=== PATIENT | female | born 1955 | race Hispanic/Latino ===

== ENCOUNTER 2018-05-26 16:11 | Emergency (ER) | payer MEDICARE, MEDICAID ==
[~2018-05-26] VITALS: Ht 175.3 cm; Wt 88.6 kg
[~2018-05-26 16:11] MED LIST: ACYCLOVIR200 MG PO; AMLODIPINE BESY10 MG PO; AMLODIPINE10 MG PO; BACTRIM DS1 TAB PO; CEPHALEXIN500 MG OR; CETIRIZINE10 MG PO; FIORICE1 PO; FLEXERIL PO; FOLIC ACID1 MG PO; HUMULIN 70/30 SC; IBUPROFEN600 MG PO; INSULIN 70/30 SC; LORTAB 10 PO; LORTAB5 PO; METHOTREXATE2.5 MG SC; METHOTREXATE25 MG/ML SC; ORENCIA125 MG/ML SC; PRILOSEC20 MG OR; RYZOLT100 MG OR; TRAMADOL HCL50 MG PO; ULTRAM50 M1 PO; ULTRAM50 MG OR; [UNRECOGNIZED DRUG - REMARK]
[2018-05-26] MEDS ORDERED: ATORVASTATIN CA80 MG PO (17:13)
[2018-05-26] MEDS ORDERED: LASIX 40 MG40 MG/TAB PO (17:13)
[2018-05-26] MEDS ORDERED: HUMALOG KW75 MG/25 K SC ×2 (17:15→17:18)
[2018-05-26] MEDS ORDERED: HUMIRA10 MG/0.2 SC (17:19)
[2018-05-26] MEDS ORDERED: BONIVA150 MG PO (17:20)
[2018-05-26] MEDS ORDERED: ISOSORB MONO30 MG PO (17:21)
[2018-05-26] MEDS ORDERED: LISINOPRIL5 MG PO (17:22)
[2018-05-26] MEDS ORDERED: LOPRESSOR50 M2 PO (17:23)
[2018-05-26] MEDS ORDERED: SINGULAIR10 MG PO (17:24)
[2018-05-26] MEDS ORDERED: SUCRALFATE1 GM PO (17:25)
[2018-05-26] MEDS ORDERED: PROAIR HFA108 MCG/AC IN (17:25)
[2018-05-26] MEDS ORDERED: TRAMADOL HCL50 MG PO (17:26)
[2018-05-26] MEDS ORDERED: MELOXICAM7.5 MG PO (17:26)
[2018-05-26 17:30] VITALS: BP 168/92
== END 2018-05-26 17:37 | disposition home or self-care (01) ==
LOC: ED 16:11
DX: M54.5 Low back pain (principal); I10 Essential (primary) hypertension; E11.9 Type 2 diabetes mellitus without complications; W07.XXXA Fall from chair, initial encounter; Y92.009 Unspecified place in unspecified non-institutional (private) residence as the place of occurrence of the external cause

== ENCOUNTER → 2018-07-10 | Outpatient (REF) | payer MEDICARE, MEDICAID ==
[~2018-07-10] MED LIST changes: +ATORVASTATIN CA80 MG PO; +BONIVA150 MG PO; +HUMALOG KW75 MG/25 K SC; +HUMIRA10 MG/0.2 SC; +ISOSORB MONO30 MG PO; +LASIX 40 MG40 MG/TAB PO; +LISINOPRIL5 MG PO; +LOPRESSOR50 M2 PO; +MELOXICAM7.5 MG PO; +PROAIR HFA108 MCG/AC IN; +SINGULAIR10 MG PO; +SUCRALFATE1 GM PO
== END | disposition home or self-care (01) ==
LOC: NUCMED 06-12 09:00
PROVIDERS: ATTEND Internal Medicine Rheumatology
DX: R93.89 Abnormal findings on diagnostic imaging of other specified body structures (principal)
CPT/HCPCS: A9503

== ENCOUNTER 2019-02-06 10:36 | Emergency (ER) | payer MEDICARE, MEDICAID ==
[~2019-02-06] VITALS: Ht 175.3 cm; Wt 90.0 kg
[~2019-02-06 10:36] MED LIST changes: +LOPRESSOR25 MG PO; -LOPRESSOR50 M2 PO
[2019-02-06 11:20] LABS: HEMATOCRIT 38.4 % (37.0-47.0); HEMOGLOBIN 11.7 g/dl (12.0-16.0); IMMATURE GRANULOCYTES 0.9 % (0.0-5.0); MEAN CELL VOLUME 92.5 fL CALC (80.0-100.0); MEAN CORPUSCULAR HGB 28.2 pG CALC (26.0-32.0); MEAN CORPUSCULAR HGB CONC 30.5 g/L CALC (32.0-36.0); NEUT# 6.66 thou/uL (2.00-7.15); RED BLOOD COUNT 4.15 mill/uL (4.20-5.60); RED CELL DISTRI WIDTH 14.6 % (11.5-15.5)
[2019-02-06 11:42] LABS: ANION GAP 12 (6-22 (CALC)); BUN 17 mg/dL (8-23); BUN/CREATININE RATIO 25 (12-20 (CALC)); CARBON DIOXIDE 24 mmol/l (22-30); CHLORIDE 107 mmol/l (95-108); CPK 43 u/l (30-165); CREATININE 0.7 mg/dL (0.5-1.0); GFR > 60 ML/MIN (>=60 (CALC)); GFR FOR AFR.AMER. > 60 ML/MIN (>=60 (CALC)); SODIUM 139 mmol/l (137-146)
[2019-02-06] MEDS ORDERED: RENA-VIT1 PO (12:28)
[2019-02-06] MEDS ORDERED: TOPAMAX25 MG PO (12:29)
[2019-02-06] MEDS ORDERED: SERTRALINE HCL100 MG PO (12:29)
[2019-02-06] MEDS ORDERED: ZANTAC 150 PO (12:31)
[2019-02-06] MEDS ORDERED: ACIDOPHILUS1 CAP PO (12:32)
[2019-02-06] MEDS ORDERED: AMIODARONE200 MG PO (12:33)
[2019-02-06] MEDS ORDERED: ADVAIR DISK1 IN (12:33)
[2019-02-06] MEDS ORDERED: CIPROFLOXACN500 MG PO (12:35)
[2019-02-06] MEDS ORDERED: ASPIRIN81 MG PO (12:35)
[2019-02-06] MEDS ORDERED: PLAVIX75 MG PO (12:36)
[2019-02-06] MEDS ORDERED: LEVEMIR100 UNIT/M SC (12:37)
[2019-02-06] MEDS ORDERED: NORCO1 TA1 PO (12:38)
[2019-02-06] MEDS ORDERED: PROTONIX40 M2 PO (12:38)
[2019-02-06 12:42] VITALS: BP 179/86
== END 2019-02-06 13:00 | disposition home or self-care (01) ==
LOC: ED 10:36
PROVIDERS: Family Medicine
DX: S70.01XA Contusion of right hip, initial encounter (principal); I10 Essential (primary) hypertension; E11.9 Type 2 diabetes mellitus without complications; W06.XXXA Fall from bed, initial encounter; Y92.003 Bedroom of unspecified non-institutional (private) residence as the place of occurrence of the external cause; Z79.4 Long term (current) use of insulin

== ENCOUNTER 2019-04-01 10:31 | Emergency (ER) | payer MEDICARE, MEDICAID ==
[~2019-04-01] VITALS: Ht 175.3 cm; Wt 81.0 kg
[~2019-04-01 10:31] MED LIST changes: +ACIDOPHILUS1 CAP PO; +ADVAIR DISK1 IN; +AMIODARONE200 MG PO; +ASPIRIN81 MG PO; +CIPROFLOXACN500 MG PO; +LEVEMIR100 UNIT/M SC; +NORCO1 TA1 PO; +PLAVIX75 MG PO; +PROTONIX40 M2 PO; +RENA-VIT1 PO; +SERTRALINE HCL100 MG PO; +TOPAMAX25 MG PO; +ZANTAC 150 PO
[2019-04-01 11:08] LABS: IMMATURE GRANULOCYTES 0.7 % (0.0-5.0); MEAN CELL VOLUME 88.6 fL CALC (80.0-100.0); MEAN CORPUSCULAR HGB 27.8 pG CALC (26.0-32.0); MEAN CORPUSCULAR HGB CONC 31.4 g/L CALC (32.0-36.0); NEUT# 16.93 thou/uL (2.00-7.15); RED BLOOD COUNT 3.95 mill/uL (4.20-5.60)
[2019-04-01 11:28] LABS: URINE BLOOD DIPSTICK SMALL (NEGATIVE); URINE COLOR YELLOW; URINE GLUCOSE - DIPSTICK NEGATIVE (NEGATIVE); URINE KETONE 40 mg/dL (NEGATIVE); URINE LEUK ESTERASE TRACE (NEGATIVE); URINE NITRITE - DIPSTICK NEGATIVE (Negative); URINE PH 5.5 (4.5-8.0); URINE PROTEIN - DIPSTICK 100 mg/dL (NEG-TRACE); URINE SPECIFIC GRAVITY >=1.030; URINE UROBILINOGEN - DIPSTICK 0.2 E.U./dL (0.2)
[2019-04-01 11:29] LABS: URINE BILIRUBIN - DIPSTICK MODERATE (NEGATIVE)
[2019-04-01] MEDS ORDERED: ADVAIR DISK1 INH (11:39)
[2019-04-01] MEDS ORDERED: [UNRECOGNIZED DRUG - OTHER] PO (11:41)
[2019-04-01] MEDS ORDERED: GLIPIZIDE5 MG PO (11:42)
[2019-04-01 11:43] LABS: ALBUMIN 3.8 g/dL (3.2-5.0); ALKALINE PHOSPHATASE 115 u/l (38-126); ANION GAP 17 (6-22 (CALC)); BUN 20 mg/dL (8-23); BUN/CREATININE RATIO 25 (12-20 (CALC)); CARBON DIOXIDE 20 mmol/l (22-30); CHLORIDE 105 mmol/l (95-108); CPK 379 u/l (30-165); CREATININE 0.8 mg/dL (0.5-1.0); ETHYL ALCOHOL 0 mg/dl (0-30); GFR > 60 ML/MIN (>=60 (CALC)); GFR FOR AFR.AMER. > 60 ML/MIN (>=60 (CALC)); LIPASE 24 u/l (23-300); MAGNESIUM 1.8 mg/dL (1.6-2.3); POTASSIUM 3.2 mmol/l (3.5-5.1); SODIUM 139 mmol/l (137-146); TOTAL PROTEIN 7.1 g/dL (6.3-8.2)
[2019-04-01 11:44] LABS: BILIRUBIN, TOTAL 0.7 mg/dL (0.0-1.4); SGOT/AST 69 u/l (9-36)
[2019-04-01 11:44] LABS: URINE BACTERIA MANY hpf; URINE SQUAMOUS EPITHELIAL CELL FEW EPI/hpf (0-FEW)
[2019-04-01] MEDS ORDERED: LOSARTAN POTASS50 MG PO (11:45)
[2019-04-01] MEDS ORDERED: NORCO1 TA2 PO (11:46)
[2019-04-01 11:48] LABS: ACT PARTIAL THROMBO TIME 26.4 SECONDS (20.0-32.5); PROTHROMBIN TIME 10.9 SECONDS (9.0-12.5)
[2019-04-01 16:04] VITALS: BP 126/62
== END 2019-04-01 16:04 | disposition short-term general hospital (02) ==
LOC: ED 10:31
PROC: 0T9B70Z Drainage of Bladder with Drainage Device, Via Natural or Artificial Opening (ICD-10-PCS; principal; 2019-04-01)
PROC: 2W3VXYZ Immobilization of Left Toe using Other Device (ICD-10-PCS; 2019-04-01)
DX: S72.144A Nondisplaced intertrochanteric fracture of right femur, initial encounter for closed fracture (principal); S92.412A Displaced fracture of proximal phalanx of left great toe, initial encounter for closed fracture; S80.11XA Contusion of right lower leg, initial encounter; N39.0 Urinary tract infection, site not specified; I10 Essential (primary) hypertension; E11.9 Type 2 diabetes mellitus without complications; L89.629 Pressure ulcer of left heel, unspecified stage; L89.619 Pressure ulcer of right heel, unspecified stage; B96.20 Unspecified Escherichia coli [E. coli] as the cause of diseases classified elsewhere; W18.30XA Fall on same level, unspecified, initial encounter; Y92.009 Unspecified place in unspecified non-institutional (private) residence as the place of occurrence of the external cause; Z16.12 Extended spectrum beta lactamase (ESBL) resistance; Z95.1 Presence of aortocoronary bypass graft; Z79.84 Long term (current) use of oral hypoglycemic drugs

== ENCOUNTER 2019-05-01 11:47 | Inpatient (IN) | payer MEDICARE, MEDICAID ==
[~2019-05-01] VITALS: Ht 177.8 cm; Wt 86.2 kg
[~2019-05-01 11:47] MED LIST changes: +ADVAIR DISK1 INH; +GLIPIZIDE5 MG PO; +LOSARTAN POTASS50 MG PO; +NORCO1 TA2 PO; +[UNRECOGNIZED DRUG - OTHER] PO
--- NOTE | 2019-05-01 11:55 | NUR ---
PATIENT ARRIVES TO ED VIA EMS, ALERT AND ORIENTED X4. AT BEDSIDE.
--- NOTE | 2019-05-01 12:15 | NUR ---
PATIENT REPORTS BEING DISCHARGED FROM REHAB ON 04/28/19, UNABLE TO STAND AND AMBULATE SINCE RIGHT HIP FRACTURE IN MARCH (2018). HAS BEEN UNABLE TO PROVIDE SELFT CARE SINCE BEING HOME, HOME HEALTH NURSE TO SEE HER TODAY AND CALLED EMS FOR TRANSPORT TO HOSPITAL. PATIENT REPORTS BEING IN WHEELCHAIR MOSTLY. PATIENT CLEAN OF INCONTINENCE, REDNESS NOTED TO BUTTOCKS AREA. PATIENT REPORTS HAVING ULCERS TO BILATERAL ANKLES.
[2019-05-01 12:24] LABS: HEMATOCRIT 31.5 % (37.0-47.0); HEMOGLOBIN 9.8 g/dl (12.0-16.0); IMMATURE GRANULOCYTES 0.9 % (0.0-5.0); MEAN CELL VOLUME 91.8 fL CALC (80.0-100.0); MEAN CORPUSCULAR HGB 28.6 pG CALC (26.0-32.0); MEAN CORPUSCULAR HGB CONC 31.1 g/L CALC (32.0-36.0); NEUT# 7.3 thou/uL (2.00-7.15); RED BLOOD COUNT 3.43 mill/uL (4.20-5.60); RED CELL DISTRI WIDTH 15.1 % (11.5-15.5)
[2019-05-01 12:43] LABS: ALBUMIN 4.1 g/dL (3.2-5.0); ALKALINE PHOSPHATASE 166 u/l (38-126); ANION GAP 15 (6-22 (CALC)); BILIRUBIN, TOTAL 0.6 mg/dL (0.0-1.4); BUN 37 mg/dL (8-23); BUN/CREATININE RATIO 37 (12-20 (CALC)); CARBON DIOXIDE 24 mmol/l (22-30); CHLORIDE 103 mmol/l (95-108); GFR 56 ML/MIN (>=60 (CALC)); GFR FOR AFR.AMER. > 60 ML/MIN (>=60 (CALC)); LIPASE 17 u/l (23-300); POTASSIUM 3.8 mmol/l (3.5-5.1); SGOT/AST 50 u/l (9-36); SODIUM 138 mmol/l (137-146)
--- NOTE | 2019-05-01 12:45 | NUR ---
URINE SAMPLE OBTAINED VIA STRAIGHT CATH, NOTED TO BE CLEAR YELLOW. PATIENT TOLERATED WELL. REQUESTING PAIN MEDICATION FOR BACK PAIN. MADE AWARE.
[2019-05-01] MEDS ORDERED: MILK OF MAG30 ML/UDC PO (13:14)
[2019-05-01] MEDS ORDERED: LOVENOX 3030 MG/0.3 SC (13:16)
[2019-05-01] MEDS ORDERED: FERR SULFATE325 MG PO (13:17)
[2019-05-01] MEDS ORDERED: NORVASC5 M1 PO (13:19)
[2019-05-01] MEDS ORDERED: WIXELA INHUB 251 AER IN (13:21)
[2019-05-01 13:26] LABS: URINE BILIRUBIN - DIPSTICK NEGATIVE (NEGATIVE); URINE BLOOD DIPSTICK NEGATIVE (NEGATIVE); URINE COLOR YELLOW; URINE GLUCOSE - DIPSTICK NEGATIVE (NEGATIVE); URINE KETONE NEGATIVE (NEGATIVE); URINE LEUK ESTERASE NEGATIVE (NEGATIVE); URINE PH 5.5 (4.5-8.0); URINE PROTEIN - DIPSTICK TRACE mg/dL (NEG-TRACE); URINE UROBILINOGEN - DIPSTICK 0.2 E.U./dL (0.2)
[2019-05-01 13:27] LABS: URINE NITRITE - DIPSTICK POSITIVE (Negative); URINE RBC 0-2 RBC/hpf (0-5)
[2019-05-01 13:28] LABS: URINE BACTERIA RARE hpf
--- NOTE | 2019-05-01 13:40 | NUR ---
AT BEDSIDE TO DISCUSS RESULTS AND PLAN OF CARE.
--- NOTE | 2019-05-01 14:15 | NUR ---
NURSE DIANELYS NOT AVAILABLE FOR REPORT. WILL CALL BACK.
--- NOTE | 2019-05-01 15:03 | NUR ---
REPORT GIVEN TO REE IVORY
--- NOTE | 2019-05-01 15:06 | NUR ---
PATIENT TRANSPORTED TI [facility] VIA STRETCHER. BELONGINGS SENT WITH PATIENT. REE IVORY AT BEDSIDE. CARE RELINQUISHED.
[2019-05-01 15:48] VITALS: BP 148/72
--- NOTE | 2019-05-01 17:52 | NUR ---
PT POSITIONED ONTO LEFT SIDE. PT CLEANED OF URINE. SHEETS CHANGED AND GOWN CHANGED.
[2019-05-01 18:56] VITALS: BP 110/59
--- NOTE | 2019-05-01 19:05 | NUR ---
ASSUMED CARE. PT NOTED RESTING IN BED. ALERT AND ORIENTED. NO APPARENT DISTRESS NOTED. PT DENIES ANY PAIN OR DISCOMFORT. IV SITE APPEARS HEALTHY. DISCUSSED POC. PT VERBALIZED UNDERSTANDING. CALL LIGHT WITHIN REACH. WILL CONTINUE TO MONITOR.
--- NOTE | 2019-05-01 21:50 | NUR ---
COMPLETE BED BATH AND LINEN CHANGE PROVIDED. PT REPOSITIONED FOR COMFORT WITH PILLOWS. PURWIK APPLIED. PT STATES SHE HAS BEEN INCONTINENT SINCE SX IN FEBRUARY. REDNESS NOTED TO BUTTOCKS, BARRIER CREAM APPLIED. CALL LIGHT WITHIN REACH. WILL CONTINUE TO MONITOR.
--- NOTE | 2019-05-02 01:02 | NUR ---
PT REPOSITIONED FOR COMFORT. PRESSURE WOUNDS NOTED TO LAURA HEELS. OLD SOILED ODORUS DRESSINGS REMOVED, IMAGES OBTAINED, WOUND CLEANSED WITH NS, CULTURE OBTAINED, AND DRESSED WITH DRY DRESSINGS. HEELS OFFLOADED WITH PILLOWS. CALL LIGHT WITHIN REACH. WILL CONTINUE TO MONITOR.
--- NOTE | 2019-05-02 03:02 | NUR ---
PT RESTING IN BED. REPOSITIONED WILL PILLOWS. PURWIK IN PLACE FUNCTIONING PROPERLY. CALL LIGHT WITHIN REACH. WILL CONTINUE TO MONITOR.
[2019-05-02 04:35] VITALS: BP 131/64
[2019-05-02 05:21] LABS: HEMATOCRIT 29.4 % (37.0-47.0); HEMOGLOBIN 8.9 g/dl (12.0-16.0); MEAN CELL VOLUME 92.5 fL CALC (80.0-100.0); MEAN CORPUSCULAR HGB CONC 30.3 g/L CALC (32.0-36.0); RED BLOOD COUNT 3.18 mill/uL (4.20-5.60); RED CELL DISTRI WIDTH 15.2 % (11.5-15.5)
[2019-05-02 05:40] LABS: ANION GAP 13 (6-22 (CALC)); BUN 33 mg/dL (8-23); BUN/CREATININE RATIO 36 (12-20 (CALC)); CARBON DIOXIDE 22 mmol/l (22-30); CHLORIDE 106 mmol/l (95-108); CREATININE 0.9 mg/dL (0.5-1.0); GFR > 60 ML/MIN (>=60 (CALC)); GFR FOR AFR.AMER. > 60 ML/MIN (>=60 (CALC)); MAGNESIUM 2.1 mg/dL (1.6-2.3); POTASSIUM 3.7 mmol/l (3.5-5.1); SODIUM 138 mmol/l (137-146)
--- NOTE | 2019-05-02 07:15 | NUR ---
PT RESTING IN BED WITH EYES CLOSED. NO DISTRESS NOTED. WILL CONTINUE TO MONITOR. CALL LIGHT IN REACH.
[2019-05-02 08:10] VITALS: BP 141/53
--- NOTE | 2019-05-02 13:05 | NUR ---
LIZ, ARTIFICIAL FLOWERS STARCHER AT BEDSIDE
[2019-05-02 15:00] VITALS: BP 134/62
--- NOTE | 2019-05-02 15:19 | NUR ---
DR AMADOR AND JEYSON MACK AT [facility].
--- NOTE | 2019-05-02 16:02 | NUR ---
PT MEDICATED FOR LOW GRADE TEMP OF 100.1. PT RESTING IN BED. NO C/O AT THIS TIME. WILL CONTINUE TO MONITOR. CALL LIGHT IN REACH.
--- NOTE | 2019-05-02 16:22 | NUR ---
PT TRANSFERED TO AIR MATTRESS BED X4 STAFF ASSIST. PT REPOSITIONED. HEELS ELEVATED ON PILLOWS. PT TOLERATED TRANSFER WELL. CALL LIGHT IN REACH.
--- NOTE | 2019-05-02 19:20 | NUR ---
PT RESTING IN BED ON AIR MATTRESS, NO SIGNS OF DISTRESS NOTED, RESP EVEN AND UNLABORED. INTRODUCED SELF TO PT, VOICES NO NEEDS OR COMPLAINTS AT THIS TIME, CALL LIGHT IN REACH,CONTINUE TO MONITOR.
[2019-05-02 19:25] VITALS: BP 119/66
--- NOTE | 2019-05-02 21:00 | NUR ---
PT RESTING IN BED ON AIRMATTRESS, PT ON CONTACT FOR ESBL, DISCUSSED PLANS FOR ANTIBIOTIC THERAPY, IVF INITATED. PT ALERT AND ORIENTED X3, RESP EVEN AND UNLABORED. DRESSINGS TO HEELS BILAT CDI, ELEVATED ON PILLOWS; HEEL PROTECTORS APPLIED. PT HAS A PURE WICK TO SUCTION, NOTED DARK YELLOW URINE IN CANISTER. DISCUSSED POC, VERBALIZED UNDERSTANDING. ASSESSMENT COMPLETED, CALL LIGHT IN REACH,CONTINUE TO MONITOR.
--- NOTE | 2019-05-02 23:25 | NUR ---
HEAD PORTER BAGGAGE AT BEDSIDE, PT RECEIVING BED BATH
--- NOTE | 2019-05-03 04:07 | NUR ---
PT RESTING IN BED WITH EYES CLOSED, NO SIGNS OF DISTRESS NOTED, RESP EVEN AND UNLABORED. CALL LIGHT IN REACH,CONTINUE TO MONITOR.
[2019-05-03 04:21] VITALS: BP 135/65
[2019-05-03 04:46] LABS: HEMATOCRIT 30.4 % (37.0-47.0); HEMOGLOBIN 9.2 g/dl (12.0-16.0); IMMATURE GRANULOCYTES 0.9 % (0.0-5.0); MEAN CELL VOLUME 92.1 fL CALC (80.0-100.0); MEAN CORPUSCULAR HGB 27.9 pG CALC (26.0-32.0); MEAN CORPUSCULAR HGB CONC 30.3 g/L CALC (32.0-36.0); NEUT# 4.93 thou/uL (2.00-7.15); RED BLOOD COUNT 3.3 mill/uL (4.20-5.60); RED CELL DISTRI WIDTH 15.2 % (11.5-15.5)
[2019-05-03 05:02] LABS: ANION GAP 11 (6-22 (CALC)); BUN 23 mg/dL (8-23); BUN/CREATININE RATIO 31 (12-20 (CALC)); CARBON DIOXIDE 23 mmol/l (22-30); CHLORIDE 109 mmol/l (95-108); CREATININE 0.8 mg/dL (0.5-1.0); GFR > 60 ML/MIN (>=60 (CALC)); GFR FOR AFR.AMER. > 60 ML/MIN (>=60 (CALC)); POTASSIUM 3.5 mmol/l (3.5-5.1); SODIUM 139 mmol/l (137-146)
[2019-05-03 07:33] VITALS: BP 150/75
--- NOTE | 2019-05-03 09:08 | NUR ---
PURE WICK CHANGE. ASSESSMENT DONE. PT IS NOW SITTING IN RECLINER. PT STATED PAIN. MEDICATED PT WITH LORTAB. DRESSING IN LAURA HEELS CDI. PT IS A&O X3. PT DENIES ANY OTHER NEEDS AT THIS TIME. CALL LIGHT IN REACH.
--- NOTE | 2019-05-03 11:35 | NUR ---
PT IS SITTING IN RECLINER . PT STATED PAIN 11/15. MEDICATED PT TYLENOL. SETUP PT FOR LUNCH AND PO FLUIDS. PT DENIES ANY OTHER NEEDS AT THIS TIME. CALL LIGHT IN REACH.
--- NOTE | 2019-05-03 12:45 | NUR ---
DR. MARTINEZ AT BEDSIDE TO ASSESS PT.
--- NOTE | 2019-05-03 14:13 | NUR ---
CHANGE PT LAURA DRESSING IN HEELS AND APPLIED HEEL PROTECTORS. MEDICATED PT WITH ULTRAM FOR PAIN. AIR MATTERESS IN PLACE. PT DENIES ANY OTHER NEEDS AT THIS TIME. CALL LIGHT IN REACH.
[2019-05-03 15:00] VITALS: BP 131/66
--- NOTE | 2019-05-03 16:05 | NUR ---
PT IS RESTING IN BED WITH LEGS ELEVATED IN PILLOWS. PT DENIES NEEDS AT THIS TIME. IVF INFUSING WELL. CALL LIGHT IN REACH.
[2019-05-03 18:40] VITALS: BP 131/72
[2019-05-04 04:00] VITALS: BP 140/74
[2019-05-04 08:00] VITALS: BP 145/75
--- NOTE | 2019-05-04 08:00 | NUR ---
PT SEEN AT REST IN THE BED, AWAKE, ALERT, ORIENTED. LUNGS CLEAR, RA. ABDOMEN SOFT, NONTENDER. BLOOD CULTURES DRAWN THIS MORNING BY LAB. PT WITH GENERALIZED PAIN, MEDICATED. HEEL PROTECTORS IN PLACE.
--- NOTE | 2019-05-04 12:00 | NUR ---
PT ASSISTED TO RECLINER AT BESIDE, ABLE TO BEAR HER WEIGHT AND MOVE SLOWLY. PT TO EAT MEAL WHILE IN CHAIR.
[2019-05-04 15:35] VITALS: BP 141/72
--- NOTE | 2019-05-04 16:33 | NUR ---
AMPAC: 14 POINTS PT DID BETTER ON FUNCTIONAL ACTIVITIES TODAY THAN YESTERDAY. STILL REQUIRED MAX A ON STS FROM LOW RECLINER CHAIR. HAD A LOT OF DIFFICULTY USING B UE TO FACILITATE ON ASSUMING STANDING POSITION. HOWEVER, PT WAS ABLE TO AMBULATE TODAY WITH SHORT STEPS W/ RW AND CGA ON BEDSIDE ~15 FT FROM RECLINER TO THE OTHER SIDE OF THE BED. SHE SAT IN THE COMMODE WITH VCS ON HAND PLACEMENT WHICH SHE DEMONSTRATED BETTER CONTROL ON DESCENT. SHE WAS ALSO INSTRUCTED TO PERFORM LONG ARC QUADS X 10 SH X 10 REPS; HEEL RAISES X 20 REPS X 2 SETS BILATERALLY. PT EXPRESSED HER DESIRE TO DO BETTER. THERAPIST ENCOURAGED AND REASSURED PT.
--- NOTE | 2019-05-04 16:43 | NUR ---
PT ABLE TO AMBULATE SEVERAL FEET WITH ASSIST FROM PHYSICAL THERAPIST TODAY. SHE HAS DIFFICULTY GETTING UP TO HER FEET, BUT ABLE TO BEAR HER WEIGHT UPON REACHING FULL HEIGHT. PT SEEMED ENCOURAGED THAT SHE COULD DO THIS.
[2019-05-04 19:21] VITALS: BP 125/68
--- NOTE | 2019-05-04 19:31 | NUR ---
ASSESSMENT COMPLETED. IV SITE PATENT AND ORDERED IVF INFUSING AT [facility], PER DAYSHIFT REPORT MD WANTS IVF AT THIS RATE. PT. REPORTING BUTTOCK SORENESS AND PAIN AND MEDICATED WITH ORDERED TRAMADOL, WILL REASSESS. PT. IS ON AIR MATTRESS AND ABLE TO REPOSITION SELF IN BED. DRESSINGS TO BILATERAL HEELS, UNABLE TO INSPECT; DRESSINGS CDI AND HEEL PROTECTORS IN PLACE. VOICES NO CONCERNS. CALL LIGHT IS IN REACH. WILL CONTINUE TO MONITOR.
--- NOTE | 2019-05-04 21:34 | NUR ---
SCHED MEDS GIVEN ALONG WITH PRN LORTAB FOR PAIN, WILL REASSESS. SNACK PROVIDED. PT. DECLINES TO BRUSH HER TEETH TONIGHT. ALSO DECLINES GLIPIZIDE DUE TO BS ONLY BEING 98. DENIES ANY NEEDS. CALL LIGHT IS IN REACH. WILL CONTINUE TO MONITOR.
--- NOTE | 2019-05-05 00:43 | NUR ---
INCENTIVE SPIROMETER PROVIDED PER ORDER AND EDUCATION PROVIDED. PT. PULLING 1000 AND GOAL SET TO 1500. DRESSINGS TO BILATERAL HEELS CHANGED AND PHOTOS OBTAINED AND TO BE PLACED IN CHART. REPOSITIONED PT. ONTO LEFT SIDE AND PO FLUIDS OFFERED. CALL LIGHT IS IN REACH.
[2019-05-05 04:43] VITALS: BP 160/75
--- NOTE | 2019-05-05 05:30 | NUR ---
PT. CHECKED FOR INCONTINENCE OF URINE AND MARY JO CARE GIVEN.NEW PAD PLACED PUREWIC IN PLACE. SCHED MEDS GIVEN. BILATERAL HEELS ELEVATED. PULLED UP IN BED. DENIES FURTHER NEEDS. FRESH WATER PROVIDED. CALL LIGHT IS IN REACH.
[2019-05-05 07:23] VITALS: BP 146/74
--- NOTE | 2019-05-05 08:00 | NUR ---
PT WITH EYES CLOSED, OPENS SPONTANEOUSLY TO DOOR OPENING, SEEN ALERT AND ORIENTED X 3. LUNGS CLEAR, RA. BM YESTERDAY. WOUNDS TO BILATERAL HEELS, COVERED WITH DRY DRESSING.
--- NOTE | 2019-05-05 12:00 | NUR ---
PT ASSISTED OOB INTO CHAIR. SHE DOES BEAR WEIGHT FAIRLY WELL, BUT LACKS THE STRENGTH TO COME TO HER FEET. WILL ATTEMPT AMBULATION AFTER LUNCH.
[2019-05-05 15:15] VITALS: BP 155/82
--- NOTE | 2019-05-05 16:00 | NUR ---
PT HAS AMBULATED WITH ASSIST FROM CHAIR TO COUCH ON THE OTHER SIDE OF THE ROOM. SHE STAYED THERE FOR A COUPLE OF HOURS, THEN AMBULATED BACK TO BED. SHE DOES REQUIRE ASSIST STANDING UP AND THEN STANDBY ASSIST. RIGHT ANKLE DISCOMFORT AFTER WALKING.
[2019-05-05 18:35] VITALS: BP 151/74
--- NOTE | 2019-05-05 19:24 | NUR ---
ASSESSMENT COMPLETED. IV SITE PATENT AND SL. DENIES NEEDS/PAIN. PUREWIC IN PLACE. BILATERAL HEELS ELEVATED ONTO PILLOW. PO FLUIDS OFFERED. UPDATED ON POC. CALL LIGHT IS IN REACH.
--- NOTE | 2019-05-05 22:00 | NUR ---
- PT. C/O BUTTOCK PAIN 11/15 AND MEDICATED WITH ORDERED LORTAB, WILL REASSESS. PT. REPOSITIONED ONTO LEFT SIDE AND PURE WIC CHANGED. OPEN AREA NOTED TO RIGHT BUTTOCK, PHOTO OBTAINED AND PLACED ONTO CHART.ORAL DIABETIC MED HELD PER PT'S REQUEST DUE TO IT ONLU BEING 82. ENCOURAGED TO CALL FOR ANY NEEDS. CALL LIGHT IS IN REACH.
--- NOTE | 2019-05-05 23:29 | NUR ---
RESTING IN BED ON AIR MATTRESS WITH EYES CLOSED; RESP. EVEN AND UNLABORED. CALL LIGHT IS IN REACH. WILL CONTINUE TO MONITOR.
--- NOTE | 2019-05-06 04:00 | NUR ---
DRESSINGS CHANGED TO BILATERAL HEELS PER ORDER. PT. TOLERTAED WELL. PT. DECLINES TO BE REPOSITIONED AT THIS TIME AND REPORTS SHE IS COMFORTABLE. CALL LIGHT IS IN REACH. WILL CONTINUE TO MONITOR.
[2019-05-06 04:03] VITALS: BP 155/78
--- NOTE | 2019-05-06 05:50 | NUR ---
PT. REPOSITIONED AND PURE WIC CANISTER EMPTIED OF 500MLS OF CLEAR YELLOW URINE. SCHED ABT HUNG. CALL LIGHT IS IN REACH.
--- NOTE | 2019-05-06 06:27 | NUR ---
MOM GIVEN TO ASSIST WITH BM.
--- NOTE | 2019-05-06 07:10 | NUR ---
REPORT RECEIVED FROM REE HARRISON;PT APPEARS TO BE SLEEPING IN SEMI FOWLERS POSITION;RESPIRATIONS APPEAR EVEN AND UNLABORED ON RA;NO S/S OF DISTRESS NOTED;ALL SAFETY PRECAUTIONS IN PLACE WITH BED IN THE LOWEST POSITION AND CALL LIGHT IN REACH;WILL CONTINUE TO MONITOR
--- NOTE | 2019-05-06 08:25 | NUR ---
PT RESTING IN SEMI FOWLERS POSITION,A&O X3;VS OBTAINED AND ASSESSMENT COMPLETED;PT REPORTS LOWER BACK AND HEAD PAIN RATING 6/10 ON THE PAIN SCALE AND REQUESTS PAIN MEDICATION,PT TO BE MEDICATED WITH PRN LORTAB 5/325MG PO;RESPIRATIONS EVEN AND UNLABORED ON RA;ABDOMEN SOFT ON PALPATION AND ACTIVE IN ALL 4 QUADRANTS;PUREWICK CATHETER IN PLACE AND DRAINING CLEAR/YELLOW URINE WITH EASE;WEAK PEDAL PULSES;DRESSINGS TO BLE CDI AND HEELS OFFLOADED,HEEL PROTECTORS NOTED;#20G TO RAC FLUSHED AND PATENT,SITE APPEARS HEALTHY;ACCUCHECK 90;AIR MATTRESS AND CONTACT PRECAUTIONS IN PLACE;PT DENIES ANY ADDITIONAL NEEDS AT THIS TIME AND IS ENCOURAGED TO CALL FOR ASSISTANCE IF NEEDED;FALL PRECAUTIONS IN PLACE WITH CALL LIGHT IN REACH;WILL CONTINUE TO MONITOR
[2019-05-06 08:26] VITALS: BP 157/69
--- NOTE | 2019-05-06 09:00 | NUR ---
PT APPEARS TO BE SLEEPING IN SEMI FOWLERS POSITION;RESPIRATIONS EVEN AND UNLABORED ON RA;NO S/S OF DISTRESS NOTED;CALL LIGHT IN REACH;WILL CONTINUE TO MONITOR
--- NOTE | 2019-05-06 11:30 | NUR ---
PT OOB RESTING IN RECLINER;RESPIRATIONS EVEN AND UNLABORED ON RA;PT DENIES ANY CURRENT NEEDS AT THIS TIME;PUREWICK AND IV SITE PATENT;ACCUCHECK 97,NO COVERAGE NEEDED;PT ENCOURAGED TO CALL FOR ASSISTANCE IF NEEDED;ASSESSMENT REMAINS UNCHANGED AT THIS TIME;CALL LIGHT IN REACH;WILL CONTINUE TO MONITOR
[2019-05-06 15:17] VITALS: BP 156/75
--- NOTE | 2019-05-06 15:40 | NUR ---
PT OOB RESTING IN RECLINER;RESPIRATIONS REMAIN EVEN AND UNLABORED ON RA;PT DENIES ANY CURRENT PAIN OR DISCOMFORTS;IV SITE TO [facility] PATENT;CLAY PATENT RUNNING WITH EASE;PT ENCOURAGED TO CALL FOR ASSISTANCE IF NEEDED;CALL LIGHT IN REACH;WILL CONTINUE TO MONITOR
--- NOTE | 2019-05-06 18:19 | NUR ---
PT REPORTS LOWER BACK PAIN RATING 6/10 ON THE PAIN SCALE AND REQUESTS PAIN MEDICATION,PT MEDICATED WITH PRN LORTAB 5/325MG PO AT THIS TIME;WILL MONITOR FOR EFFECTIVENESS
[2019-05-06 19:17] VITALS: BP 159/82
--- NOTE | 2019-05-06 19:19 | NUR ---
ASSESSMENT COMPLETED. NO DISTRESS NOTED. RESP. EVEN AND UNLABORED. ENCOURAGED USE OF INCENTIVE SPIROMETER. IV SITE PATENT AND SL. PT. CHECKED FOR INCONTINENCE AND NONE NOTED. PT. DECLINES WANTING TO BE REPOSITIONED AT THIS TIME AND REPORTS SHE IS COMFORTABLE AT THIS TIME AND PT. IS ABLE TO SELF TURN WELL AND ENCOURAGED TO DO SO. BILATERAL HEEL DRESSINGS CDI AND BILATERAL HEELS OFFLOADED ONTO PILLOW WITH HEEL PROTECTORS IN PLACE. UPDATED ON POC. CALL LIGHT IS IN REACH. WILL CONTINUE TO MONITOR.
--- NOTE | 2019-05-06 21:35 | NUR ---
SCHED MEDS GIVEN AND ENSURE PROVIDED. PT. CLEANED OF A SMALL INCONTINENCE OF URINE AND REPOSITIONED ONTO RIGHT SIDE WITH PURE WIC IN PLACE. DENIES NEEDS. CALL LIGHT IS IN REACH. HEELS REMAIN OFF LOADED.
[2019-05-07] VITALS (7 sets, daily range): BP systolic 148–186; BP diastolic 74–85
--- NOTE | 2019-05-07 | NUR ---
RESTING IN BED WITH EYES CLOSED; RESP. EVEN AND UNLABORED. CALL LIGHT IS IN REACH.
--- NOTE | 2019-05-07 00:50 | NUR ---
PT. GIVEN A CBB AND LINENS CHANGED. DRESSING CHANGED TO BILATERAL HEELS. REPOSITIONED ONTO LEFT SIDE WITH BILATERAL HEELS ELEVATED AND HEEL PROTECTORS APPLIED. CALL LIGHT IS IN REACH. WILL CONTINUE TO MONITOR.
--- NOTE | 2019-05-07 03:20 | NUR ---
RESTING IN BED WITH EYES CLOSED; RESP. EVEN AND UNLABORED. CALL LIGHT IS IN REACH.
[2019-05-07 05:23] LABS: HEMATOCRIT 31.1 % (37.0-47.0); HEMOGLOBIN 9.6 g/dl (12.0-16.0); IMMATURE GRANULOCYTES 1.4 % (0.0-5.0); MEAN CELL VOLUME 91.2 fL CALC (80.0-100.0); MEAN CORPUSCULAR HGB 28.2 pG CALC (26.0-32.0); MEAN CORPUSCULAR HGB CONC 30.9 g/L CALC (32.0-36.0); NEUT# 4.66 thou/uL (2.00-7.15); RED BLOOD COUNT 3.41 mill/uL (4.20-5.60)
--- NOTE | 2019-05-07 05:25 | NUR ---
PT. C/O GENERALIZED PAIN 11/15 AND MEDICATED WITH ORDERED PRN LORTAB, WILL REASSESS. PT. DECLINES WANTING TO BE REPOSITIONED AT THIS TIME. PO FLUIDS OFFERED. CALL LIGHT IS IN REACH.
--- NOTE | 2019-05-07 07:00 | NUR ---
REPORT RECEIVED FROM REE HARRISON;PT APPEARS TO BE SLEEPING IN SEMI FOWLERS POSITION;NO S/S OF DISTRESS NOTED;RESPIRATIONS EVEN AND UNLABORED ON RA;PUREWICK CATHETER APPEARS TO BE RUNNING WITH EASE;ALL SAFETY PRECAUTIONS IN PLACE WITH BED IN THE LOWEST POSITION AND CALL LIGHT IN REACH;WILL CONTINUE TO MONITOR
--- NOTE | 2019-05-07 07:45 | NUR ---
PT RESTING IN SEMI FOWLERS POSITION,A&O X3;VS OBTAINED AND ASSESSMENT COMPLETED,CURRENT BP 186/85 HR 92.ALL MORNING MEDICATIONS TO BE ADMINISTERED AT THIS TIME;PT DENIES ANY CURRENT PAIN OR DISCOMFORTS,PAIN SCALE AND REPORTING EDUCATED;RESPIRATIONS EVEN AND UNLABORED ON RA;ABDOMEN SOFT ON PALPATION AND ACTIVE IN ALL 4 QUADRANTS;PUREWICK CATHETER IN PLACE AND DRAINING CLEAR/YELLOW URINE;WEAK PEDAL PULSES;BLE DRESSINGS REMAIN CDI WITH HEELS OFFLOADED ON A PILLOW AND HEEL PROTECTORS IN PLACE;#20G TO RAC FLUSHED AND PATENT,SITE APPEARS HEALTHY;ACCUCHECK 80, NO COVERAGE NEEDED;CONTACT PRECAUTIONS IN PLACE FOR ESBL;PT DENIES ANY ADDITIONAL NEEDS AND IS ENCOURAGED TO CALL FOR ASSISTANCE IF NEEDED;FALL PRECAUTIONS IN PLACE WITH BED IN THE LOWEST POSITION AND CALL LIGHT IN REACH;WILL CONTINUE TO MONITOR
--- NOTE | 2019-05-07 09:15 | NUR ---
BP RE-CHECK 155/74
--- NOTE | 2019-05-07 09:30 | NUR ---
OT WORKING WITH PATIENT.
--- NOTE | 2019-05-07 09:40 | NUR ---
PT WORKING WITH PATIENT.
--- NOTE | 2019-05-07 10:10 | NUR ---
AT BEDSIDE DISCUSSING POC WITH PT.
--- NOTE | 2019-05-07 10:49 | NUR ---
AMPAC SCORE TODAY: 15 points - She will still benefit from in-pt rehab to improve her functional independence. Pt showed better functional level today. She managed to move from supine to sit independently effectively lifting and sliding her LE off to the side of bed. She then STS with modified independence using B UE to push self up from elevated bed ht for easy standing. She performed STS x 10 reps, weight shifting and standing marches prior to amb to the recliner. She sat down in the recliner with better control on descent and proper hand placement. She reports today that she did the exercises taught by therapist over the weekend.
--- NOTE | 2019-05-07 11:40 | NUR ---
PT OOB RESTING IN RECLINER;RESPIRATIONS EVEN AND UNLABORED ON RA;PT REPORTS GENERALIZED PAIN RATING 6/10 ON THE PAIN SCALE AND REQUESTS PAIN MEDICATION, PT MEDICATED WITH LORTAB 5/325MG PO AT THIS TIME;IV SITE PATENT;PUREWICK CATHETER EMPTIED OF 900CC OF CLEAR/YELLOW URINE;PT DENIES ANY ADDITIONAL NEEDS AT THIS TIME;ENCOURAGED TO CALL FOR ASSISTANCE IF NEEDED;FALL PRECAUTIONS IN PLACE WITH CALL LIGHT IN REACH;WILL CONTINUE TO MONITOR
--- NOTE | 2019-05-07 15:30 | NUR ---
PT RESTING IN SEMI FOWLERS POSITION;RESPIRATIONS EVEN AND UNLABORED ON RA;PT DENIES ANY CURRENT PAIN OR DISCOMFORTS;IV SITE TO [facility] PATENT;Tran[facility] PATENT AND RUNNING WITH EASE;PT DENIES ANY ADDITIONAL NEEDS AT THIS TIME AND IS ENCOURAGED TO CALL FOR ASSISTANCE IF NEEDED;CALL LIGHT IN REACH;WILL CONTINUE TO MONITOR
--- NOTE | 2019-05-07 17:55 | NUR ---
PT REPORTS BLE PAIN RATING 6/10 ON THE PAIN SCALE AND REQUESTS PAIN MEDICATION,PT MEDICATED ITH PRN LORTAB 5/325MG PO AT THIS TIME;PT DENIES ANY ADDITIONAL NEEDS AND IS ENCOURAGED TO CALL FOR ASSISTANCE IF NEEDED;CALL LIGHT IN REACH;WILL CONTINUE TO MONITOR
--- NOTE | 2019-05-07 19:50 | NUR ---
PATIENT AWAKE ALERT AND ORIENTED RESTING WITH HOB ELEVATED WATCHING TV. NO COMPLAINTS AT THIS TIME. PURE WICK IN PLACE DRAINING YELLOW URINE. BP ELEVATED AT 165/85, HR-78 AND O2SAT IS 96% ON ROOM AIR. MEDICATED WITH CLONODINE FOR HTN. PATIENT IS ON CONTACT PRECAUTIONS FOR ESBL. AIR MATTRESS IN PLACE. DRESSING TO LAURA HEELS INTACT AND FEEL ELEVATED WITH PILLOWS. ENCOURAGED U SE OF IS Q1H WHILE AWAKE-WILL REINFORCE USE. SAFETY PRECAUTIONS REINFORCED. CALL LIGHT IN REACH. WILL CONT TO MONITOR.
--- NOTE | 2019-05-07 20:45 | NUR ---
RESTING IN BED-BP IMPROVED-148/77, HR-78. ENCOURAGED USE OF IS Q1H W/A. WILL REINFORCE PRN. CALL LIGHT IN REACH. WILL CONT TO MONITOR.
--- NOTE | 2019-05-07 23:50 | NUR ---
APPEARS SLEEPING AT THIS TIME-HOB ELEVATED, ON AIR MATTRESS. PURE WICK IS DRAINING YELLOW URINE. HEELS REMAIN ELEVATED WITH DRESSINGS TO BOTH HEELS INTACT. CALL LIGHT IN REACH. WILL CONT TO MONITOR.
[2019-05-08] VITALS (7 sets, daily range): BP systolic 123–183; BP diastolic 60–84
--- NOTE | 2019-05-08 00:52 | NUR ---
PATIENT RESTING IN BED-BP UP AGAIN. MEDICATED WITH APRESOLINE 10MG IVP ORDERED FOR HTN. BP-183/84, HR-74. CALL LIGHT IN REACH. WILL CONT TO MONITOR.
--- NOTE | 2019-05-08 02:26 | NUR ---
RESTING IN BED-BP DOWN TO 138/60, HR-72. APPEARS SLEEPING WITH EYES CLOSED. CALL LIGHT IN REACH. WILL CONT TO MONITOR.
--- NOTE | 2019-05-08 03:38 | NUR ---
PATIENT RESTING IN BED-COMPLETE BED BATH GIVEN. PURE WICK WAS CHANGED-CONT TO DRAIN YELLOW URINE. LAURA HEEL DRESSINGS WERE CHANGED-PHOTO'S TAKEN AND DSD REAPPLIED. NO DRAINAGE NOTED ONOLD DRESSINGS. NO FOUL ODOR AT THIS TIME. LINENS CHANGED AND PATIENT REPOSITIONED. BARRIER CREAM APPLIED TO AFFECTED AREAS ON BUTTOCKS. BOTH FEET ELEVAED ON PILLOWS WITH HEEL PROTECTORS IN PLACE. SAFETY PRECAUTIONS REINFORCED. CALL LIGHT IN REACH. WILL CONT TO MONITOR.
--- NOTE | 2019-05-08 06:17 | NUR ---
PATIENT RESTING IN BED WITH HEELS ELEVAED ON PILLOWS. MEDICATED FOR GENERALIZED ACHY PAIN-6/10 ON PAIN SCALE WITH LORTAB 5/325MG PO FOR PAIN. SAFETY PRECAUTIONS REINFORCED. CALL LIGHT IN REACH. WILL CONT TO MONITOR.
--- NOTE | 2019-05-08 07:00 | NUR ---
REPORT RECEIVED FROM REE GONZALEZ;PT APPEARS TO BE SLEEPING IN SEMI FOWLERS POSITION;RESPIRATIONS APPEAR EVEN AND UNLABORED ON RA;NO S/S OF DISTRESS NOTED;PUREWICK APPEARS TO BE RUNNING WITH EASE;ALL SAFETY PRECAUTIONS IN PLACE WITH BED IN THE LOWEST POSITION AND CALL LIGHT IN REACH;WILL CONTINUE TO MONITOR
--- NOTE | 2019-05-08 08:40 | NUR ---
PT RESTING IN SEMI FOWLERS POSITION,A&O X3;VS OBTAINED AND ASSESSMENT COMPLETED;PT DENIES ANY CURRENT PAIN OR DISCOMFORTS,PAIN SCALE AND REPORTING EDUCATED;RESPIRATIONS EVEN AND UNLABORED ON RA;ABDOMEN SOFT ON PALPATION AND ACTIVE IN ALL 4 QUADRANTS;MOM AND MIRLAX TO BE ADMINISTERED;PUREWICK CATHETER IN PLACE AND DRAINING CLEAR/YELLOW URINE WITH EASE;WEAK PEDAL PULSES;BLE DRESSINGS CDI AND OFFLOADED ON A PILLOW;HEEL PROTECTORS NOTED;STAGE 2 PRESSURE ULCER NOTED TO BUTTOCK,DRESSING INTACT;#20G TO RAC FLUSHED AND PATENT,SITE APPEARS HEALTHY;ACCUCHECK 108, NO COVERAGE NEEDED;CONTACT PRECAUTIONS IN PLACE;PT DENIES ANY ADDITIONAL NEEDS AT THIS TIME AND IS ENCOURAGE TO CALL FOR ASSISTANCE IF NEEDED;FALL PRECAUTIONS IN PLACE WITH BED IN THE LOWEST POSITION AND CALL LIGHT IN REACH;WILL CONTINUE TO MONITOR
--- NOTE | 2019-05-08 11:30 | NUR ---
PT OOB RESTING IN RECLINER;RESPIRATIONS EVEN AND UNLABORED ON RA;PT DENIES ANY CURRENT PAIN OR NEEDS;IV SITE TO RAC REMOVED DUE TO EXPIRATION DATE WITH CATHETER INTACT;NEW #22G STARTED TO RIGHT WRIST ON 1ST ATTEMPT BY THIS WRITTER,PT TOLERATED WELL;PUREWICK CATHETER PATENT;ACCUCHECK 134, NO COVERAGE NEEDED;ASSESSMENT REMAINS UNCHANGED AT THIS TIME;PT DENIES ANY ADDITIONAL NEEDS AND IS ENCOURAGED TO CALL FOR ASSISTANCE IF NEEDED;CALL LIGHT IN REACH;WILL CONTINUE TO MONITOR
--- NOTE | 2019-05-08 11:55 | NUR ---
AMBRIDGETTEDMENT TO O.T. ASSESSMENT OF 05/07/19 PATIENT HAD AN AMPAC SCORE OF 14 WHICH INDICATES SNF/IRF. PATIENT WILL BENEFIT FROM SKILLED THERAPY AT AN IRF TO IMPROVE SELF CARE SKILLS AND MOBILITY.
--- NOTE | 2019-05-08 12:26 | NUR ---
[facility] SCORE TODAY: 16 POINTS SHE WILL BENEFIT FROM IN-PT REHAB FOR INTENSIVE CONDITIONING. PT AMBULATED IN THE HALLWAY FOR THE FIRST TIME TODAY. SHE MANAGED TO AMB W/ RW AND CGA WITH WHEELCHAIR ON STAND-BY X 30 FT X 2. SHE THEN RETURNED TO HER ROOM AND WAS GIVEN MOD A TO STAND UP FROM SITTING BEFORE TRANSFERING TO THE RECLINER. ENCOURAGED TO WEAN OFF FROM PRU-WICK AND USE THE BSC INSTEAD. PT AGREED. VANDANA SCOTT WAS INFORMED OF THIS AND ACKNOWLEDGED. PT WAS INSTRUCTED IN DETAIL OF EXERCISES THAT ARE SAFE TO BE DONE INDEPENDENTLY THAT FOCUS ON LE STRENGTHENING. PT UNDERSTOOD.
--- NOTE | 2019-05-08 13:45 | NUR ---
PT OOB RESTING IN RECLINER;PT REPORTS RT HIP PAIN RATING 6/10 ON THE PAIN SCALE AND REQUESTS PAIN MEDICATION;PT MEDICATED WITH PRN LORTAB 5/325MG PO;WILL CONTINUE TO MONITOR FOR EFFECTIVENESS
--- NOTE | 2019-05-08 15:50 | NUR ---
PT RESTING IN RECLINER;RESPIRATIONS EVEN AND UNLABORED ON RA;PT DENIES ANY CURRENT PAIN OR DISCOMFORTS;IV SITE TO RIGHT WRIST PATENT;PUREWICK RUNNING WITH EASE;PT DENIES ANY ADDITIONAL NEEDS AT THIS TIME;ASSESSMENT REMAINS UNCHANGED;ENCOURAGED TO CALL FOR ASSISTANCE IF NEEDED;CALL LIGHT IN REACH;WILL CONTINUE TO MONITOR
--- NOTE | 2019-05-08 16:56 | NUR ---
AT BEDSIDE DISCUSSING POC.
--- NOTE | 2019-05-08 19:30 | NUR ---
PATIENT RESTING IN BEDWITH HOB ELEVATED AD WATCHING TV. AWAKE ALERT AND ORIENTEDX3. PATIENT WITH NO COMPLAINTS AT THIS TIME. PURE WICK IS PATENT AND DRAINING YELLOW URINE. SALINE LOCK TO RIGHT WRIST INTACT AND IS HEALTHY WITH GOOD BLOOD RETURN. DRESSINGS TO LAURA HEELS INTACT AND IN HEEL PROTECTORS. BLE ELVATED ON PILLOWS. ENCOURAGED USE OF IS INSTRUCTED Q1H WHILE AWAKE. RELUCTANT BUT IS ABLE TO DEMONSTRATE PROPER USE OF THE DEVICE. SAFETY PRECAUTIONS REINFORCED. ALL LIGHT IN REACH. WILL CONT TO MONITOR.
--- NOTE | 2019-05-08 21:45 | NUR ---
RESTING IN BED-STATES THAT SHE HAD A GOOD DAY WORKING WITH PT,OT AND SITTING UP ION THE CHAIR FOR A FEW HOURS TODAY. IV SITE IS INTACT WITH GOOD BLOOD RETURN. MERRUM INFUSING ORDERED AT THIS TIME. PATIENT MEDICATED FOR GENERALIZED PAIN-7/10 ON PAIN SCALE WITH LORTAB 5/325MG PO. FEET REMAIN ELEVATED AND DRESSINGS INTACT. SAFETY PRECAUTIONS REINFORCED. CALL LIGHT IN REACH. WILL CONT TO MONITOR.
--- NOTE | 2019-05-09 01:48 | NUR ---
PATIENT APPEARS SLEEPING AT THIS TIME WITH HOB ELEVATED AND EYES CLOSED. RESP ARE EVEN AND UNLABORED. PUREWICK DRAINING YELLOW URINE. BOTH FFET ELEVATED ON PILLOWS. CALL LIGHT IN REACH. WILL CONT TO MONITOR.
[2019-05-09 03:00] VITALS: BP 140/78
--- NOTE | 2019-05-09 03:13 | NUR ---
PATIENT RESTING IN BED-INCONT OF MODERATE AMT OF URINE. PATIENT WAS GIVEN PERINEAL CARE WITH SOAP AND WATER. LINENS CHANGED AND PURE WICK REAPPLIED. BARRIER CREAM APPLIED TO BUTTOCKS. TURNED AND REPOSTIONED. HEEL DRESSING ARE CDI AT THIS ITME. HEEL PROTECTORS ARE IN PLACE. SAFETY PRECAUTIONS REINFORCED. CALL LIGHTIN REACH. WILL CONT TO MONITOR.
[2019-05-09 05:57] LABS: HEMATOCRIT 31.2 % (37.0-47.0); HEMOGLOBIN 9.6 g/dl (12.0-16.0); MEAN CORPUSCULAR HGB 28.3 pG CALC (26.0-32.0); MEAN CORPUSCULAR HGB CONC 30.8 g/L CALC (32.0-36.0); NEUT# 6.02 thou/uL (2.00-7.15); RED BLOOD COUNT 3.39 mill/uL (4.20-5.60); RED CELL DISTRI WIDTH 15.1 % (11.5-15.5)
[2019-05-09 06:21] LABS: ANION GAP 11 (6-22 (CALC)); BUN 21 mg/dL (8-23); BUN/CREATININE RATIO 24 (12-20 (CALC)); CARBON DIOXIDE 24 mmol/l (22-30); CHLORIDE 107 mmol/l (95-108); CREATININE 0.9 mg/dL (0.5-1.0); GFR > 60 ML/MIN (>=60 (CALC)); GFR FOR AFR.AMER. > 60 ML/MIN (>=60 (CALC)); SODIUM 137 mmol/l (137-146)
[2019-05-09 06:26] LABS: POTASSIUM 4.5 mmol/l (3.5-5.1)
[2019-05-09 08:14] VITALS: BP 174/77
--- NOTE | 2019-05-09 08:26 | NUR ---
ASSESSMENT DONE. PT IS A&O X3. PT STATED PAIN 11/15. BP IS 174/77. MEDICATED PT WITH LORTAB AND APRESOLINE. PURE PICK IN PLACE WITH YELLOW URINE. HEELS ELEVATED IN PILLOW WITH HEEL PROTECTORS IN PLACE. PT DENIES ANY OTHER NEEDS AT THIS TIME. CALL LIGHT IN REACH.
--- NOTE | 2019-05-09 11:56 | NUR ---
The patient is in good spirits. She is able to get OOB to stand and has LE weakness making her feel unsure of herself with standing activity and requiring mod assist of 1.. She is able to perfrom mini squat , weight shift and stepping with vitals stable but was limited by dyspnea. Her Am Pac score is 8 as she requires assistance to scoot in the bed and for assistance with bed mobility and all transfers. She would do well to go to ECF or inpatient rehab to reduce fall risk and cardiac monitoring
[2019-05-09 12:12] VITALS: BP 156/82
--- NOTE | 2019-05-09 12:12 | NUR ---
PT IS EATING HER LUNCH. PT STATED PAIN IS 6/10. MEDICATED PT WITH ULTRAM. PT DENIES ANY OTHER NEEDS AT THIS TIME. CALL LIGHT IN REACH.
--- NOTE | 2019-05-09 15:09 | NUR ---
DRESSING CHANGE TO LAURA HEELS AND APPLIED HEEL PROTECTORS BACK. LEGS ELEVATED IN PILLOWS. AIR MATTRESS IN PLACE. PT DENIES ANY NEEDS AT THIS TIME. CALL LIGHT IN REACH.
[2019-05-09 16:20] VITALS: BP 151/80
[2019-05-09 19:49] VITALS: BP 130/73
--- NOTE | 2019-05-09 22:52 | NUR ---
PATIENT RESTING IN BED WATCHING T.V. PATIENT COMPLAIN OF GENERALIZED PAIN. PATIENT REPOSITION. PATIENT INSTRUCTED TO CALL FOR ASSISTANCE IF NEEDED.
[2019-05-10 04:27] VITALS: BP 152/82
--- NOTE | 2019-05-10 07:10 | NUR ---
PATIENT RESTED WELL THROUGHOUT SHIFT, NURSE REPOSITION PT EVERY 2 HRS, MARY JO CARE WAS PROVIDED AND SKIN BARRIER APPLIED TO BUTTOCKS. PATIENT HAS AN OPEN AREA TO RIGHT BUTTOCK WOUND BED PINK IN COLOR AND NO REDNESS. PATIENT EDUCATED ON THE IMPORTANCE WITH REPOSITIONING. PATIENT NEEDS X 1 PERSON ASSISTANCE WITH BED MOBILITY.
[2019-05-10 07:19] VITALS: BP 142/78
--- NOTE | 2019-05-10 07:30 | NUR ---
PATIENT RESTING IN BED AT THIS TIME-AWAKE ALERT AND ORIENTEDX3. NO COMPLAINTS AT THIS TIME. PATIENT WITH LAURA HEEL DRESSINGS CDI-HEEL PROTECTORS IN PLACE. BOTH FEET ELEVATED ON PILLOWS. PATIENT IS RESTING ON AIR MATTRESS. PUREWICK IN PLACE AND DRAINING YELLOW URINE. ACCU-CHECK WAS 85-NO COVERAGE NEEDED. SAFETY PRECAUTIONS REINFORCED. CALL LIGHT IN REACH. WILL CONT TO MONITOR.
--- NOTE | 2019-05-10 10:54 | NUR ---
Pt. found resting in recliner, treatment plan explained of which pt. agrees to participate in therapeutic exercises and gait training. Sitting in recliner pt. asked to demosntrate exercises such as seated heel+toe raises, seated LAQ exercises and seated marching x 10 repetitions each. Good form is noted with exercises. Sit to stand with mod assist of 1 and x 3 attempts for coming to stand. Once in standing pt. used walker and ambulated x 10 feet away and x 10 feet back to recliner with CGA of 1 and v.c.'s for safety and postural awareness. Stand to sit in recliner done with mod. assist of 1. Gait is characterized by short shuffling steps. Once resting in recliner LE's were elevated and call light placed within reach. Pt. was without questions/concerns after treatment. AMPAC score of 13.
--- NOTE | 2019-05-10 11:25 | NUR ---
PATIENT SITTING UP IN THE RECLINER AT THIS TIME. BS IS 101 AT THIS TIME-NO COVERAGE NEEDED. NO COMPLAINTS AT THIS TIME. PATIENT DID WORK WITH PT THIS MORNING. SAFETY PRECAUTIONS REINFORCED. CALL LIGHT IN REACH. WILL CONT TO MONITOR.
--- NOTE | 2019-05-10 12:56 | NUR ---
PATIENT SEEN THIS A.M. FOR O.T. TREATMENT. PATIENT RECEIVED SITTING UP IN CHAIR. PATIENT PERFORMED UE AROM EXERCISES. PATIENT PERFORMED SIT <-> STAND TRANSFER AND NEEDED TOT A. "I'VE BEEN SITTING UP FOR A WHILE." PATIENT HAS EXCELLENT MOTIVATION. AMPAC SCORE = 14 WHICH INDICATES D/C TO IRF/SNF WHICH PATIENT WOULD BENEFIT FROM A IRF.
--- NOTE | 2019-05-10 13:25 | NUR ---
PATIENT SITTING UP IN RECLINER AT THIS TIME-TALKING ON THE PHONE. REQUESTING PAIN MEDS FOR GENERALIZED PAIN-6/10 ON PAIN SCALE. MEDICATED WITH LORTAB 5/325MG PO FOR PAIN. CALL LIGHT IN REACH. WILL CONT TO MONITOR.
[2019-05-10 15:35] VITALS: BP 152/79
--- NOTE | 2019-05-10 17:20 | NUR ---
PATIENT BACK IN BED-PURE WICK REPLACED. PATIENT APPEARS EXCITED TO BEING DISCHARGED TO SNF FOR FURTHER REHAB. DR. CESPEDES CONSULT CALL TO HIM AND HE WILL SEE PATIENT IN AM REGUARDING RIGHT UPPER CHEST DIALYSIS CATH REMOVAL. BS-81-NO COVERAGE NEEDED. CALL LIGHT IN REACH. WILL CONT TO MONITOR.
--- NOTE | 2019-05-10 19:20 | NUR ---
REPORT FROM CARLOS KEENAN. PT RESTING IN BED. ALERT AND ORIENTED. NO APPARENT DISTRESS NOTED. PT C/O GENERALIZED PAIN 11/15. WILL MEDICATED WITH PRN PAIN MEDICATION UPON REQUEST, PT REFUSED TURN AND REPOSITIONING AT THIS TIME. PURWIK IN PLACE FUNCTIONING PROPERLY. DISCUSSED POC. PT VERBALIZED UNDERSTANDING. DRESSING TO BILATERL HEELS CDI, OFFLOADED WITH PILLOWS. PT DENIES ANY OTHER CURRENT WANTS OR NEEDS. CALL LIGHT WITHIN REACH. WILL CONTINUE TO MONITOR.
[2019-05-10 19:31] VITALS: BP 139/74
--- NOTE | 2019-05-10 23:11 | NUR ---
PT RESTING IN BED WITH EYES CLOSED. NO APPARENT DISTRESS NOTED. CALL LIGHT WITHIN REACH. WILL CONTINUE TO MONITOR.
[2019-05-11 03:40] VITALS: BP 132/71
--- NOTE | 2019-05-11 03:45 | NUR ---
PT REPOSITIONED IN BED. DRESSING CHANGED TO LAURA HEELS. PT TOLERATED WELL. PURWIK IN PLACE FUNCTIONING PROPERLY. PT DENIES ANY CURRENT WANTS OR NEEDS. NO APPARENT DISTRESS NOTED. PT DENIES ANY PAIN OR DISCOMFORT. CALL LIGHT WITHIN REACH. WILL CONTINUE TO MONITOR.
[2019-05-11 08:16] VITALS: BP 153/81
--- NOTE | 2019-05-11 14:36 | NUR ---
AMPAC SCORE TODAY: 16 POINTS PT HAS IMPROVED SIGNIFICANTLY IN HER FUNCTIONAL LEVEL. HOWEVER, SHE WILL STILL BENEFIT FROM IN-PT REHAB TO CONTINUE GEN. CONDITIONING, BALANCE AND GAIT TRAINING. SHE WAS SEEN TODAY RESTING IN BED WITH HOB ELEVATED. SHE WAS INDEP ON ROLLING, SCOOTING AND SUPINE>SIT ON EOB. SHE MANAGED TO STAND UP FROM SITTING IN THE BED WITH MIN A FROM THERAPIST. PT DID BETTER ON STS TODAY WITH AT LEAST 80% EFFORT COMING FROM HER. SHE THEN AMBULATED IN THE HALLWAY WITH WHEELCHAIR ON STANDBY, UTILIZING A RW WITH CGA X 40 FT X 2. SHE RETURNED TO HER ROOM AND OPTED TO SIT IN THE RECLINER WITH MORE CONTROLLED DESCENT USING B HANDS WHILE THERAPIST OFFERED SBA TO ENSURE SAFE COMPLETION OF TASK. NO ADVERSE RXNS NOTED OR REPORTED AT THE END OF TX.
[2019-05-11 16:00] VITALS: BP 133/55
[2019-05-11 18:55] VITALS: BP 132/59
--- NOTE | 2019-05-11 19:00 | NUR ---
ASSUMED CARE. PT NOTED SITTING UP IN CHAIR AT BEDSIDE. ALERT AND ORIENTED X3. NO APPARENT DISTRESS NOTED. PT DENIES ANY PAIN OR DISCOMFORT. PT VOICES NEEDS TO RETURN TO BED WHEN FINISHED WITH DINNER, INSTRUCTED TO USE CALL LIGHT WHEN READY. DISCUSSED POC. PT VERBALIZED UNDERSTANDING. IV SITE APPEARS HEALTHY. CALL LIGHT WITHIN REACH. WILL CONTINUE TO MONITOR.
--- NOTE | 2019-05-11 22:15 | NUR ---
PT C/O PAIN AT IV SITE. IV SITE APPEARS HEALTHY AND FLUSHES WELL. SITE EXPIRES 120. NEW IV SITE OBTAINED X1 ATTEMPT. PT TOLERATED WELL. PAINFUL IV SITE REMOVED CATH INTACT. WILL CONTINUE TO MONITOR.
--- NOTE | 2019-05-12 02:22 | NUR ---
PT RESTING IN BED WITH EYES CLOSED. NO APPARENT DISTRESS NOTED. CALL LIGHT WITHIN REACH. WILL CONTINUE TO MONITOR.
[2019-05-12 04:26] VITALS: BP 142/78
[2019-05-12 05:12] LABS: HEMATOCRIT 30.8 % (37.0-47.0); HEMOGLOBIN 9.4 g/dl (12.0-16.0); MEAN CELL VOLUME 92.2 fL CALC (80.0-100.0); MEAN CORPUSCULAR HGB 28.1 pG CALC (26.0-32.0); MEAN CORPUSCULAR HGB CONC 30.5 g/L CALC (32.0-36.0); RED BLOOD COUNT 3.34 mill/uL (4.20-5.60); RED CELL DISTRI WIDTH 14.8 % (11.5-15.5)
[2019-05-12 05:31] LABS: ANION GAP 10 (6-22 (CALC)); BUN 26 mg/dL (8-23); BUN/CREATININE RATIO 29 (12-20 (CALC)); CARBON DIOXIDE 26 mmol/l (22-30); CHLORIDE 106 mmol/l (95-108); CREATININE 0.9 mg/dL (0.5-1.0); GFR > 60 ML/MIN (>=60 (CALC)); GFR FOR AFR.AMER. > 60 ML/MIN (>=60 (CALC)); MAGNESIUM 2.1 mg/dL (1.6-2.3); POTASSIUM 4.5 mmol/l (3.5-5.1); SODIUM 137 mmol/l (137-146)
--- NOTE | 2019-05-12 09:00 | NUR ---
PT RESTING IN BED, NO SIGNS OF DISTRESS NOTED, RESP EVEN AND UNLABORED. DISCUSSED POC, PT DECLINED HER BREAKFAST AND WANTS TO WAIT FOR HER MEDS UNTIL AFTER REMOVED DIALYSIS PORT. PER PT MD INFORMED HER TO REMAIN NPO. DRESSINGS TO BLE CDI, ELEVATED ON PILLOW. ASSESSMENT COMPLETED, CALL LIGHT IN REACH,CONTINUE TO MONITOR.
[2019-05-12 09:10] VITALS: BP 153/79
--- NOTE | 2019-05-12 11:50 | NUR ---
AT BEDSIDE, FOR REMOVAL OF DIALYSIS PORT. TIME OUT CALLED AT 11:55 VERISITE FORM AND CONSENT COMPLETED. PT EAGER FOR REMOVAL OF PORT. MD REMOVED,PT TOLERATED WELL. REQUIRES ONLY 1 SUTURE AND BANDAID APPLIED BY . PER OK TO CONTINUE LOVENOX TONIGHT. CALL LIGHT IN REACH,CONTINUE TO MONITOR.
--- NOTE | 2019-05-12 15:00 | NUR ---
PT RESTING IN BED, PERICARE GIVEN AND NEW PUREWICK APPLIED. CALL LIGHT IN REACH,CONTINUE TO MONITOR.
[2019-05-12 15:20] VITALS: BP 144/67
--- NOTE | 2019-05-12 19:30 | NUR ---
PATIENT RESTING IN BED WATCHING TV AT THIS ITME. AWAKE ALERT AND ORIENTEDX3. PATIENT WITH BANDAID TO RIGHT NECK AREA AND 2X2 DRESSSING TO RIGHT UPPER CHEST FROM DIALYSIS CATH REMOVAL EARLIER TODAY. PATIENT WITH DRESSINGS TO LAURA HEELS INTACT-HEEL PROTECTORS IN PLACE AND ELEVATED ON PILLOWS. PUREWICK CATH PATENT AND DRAINING YELLOW URINE. SALINE LOCK TO RIGHT FOREARM SITE IS HEALTHY AT THIS TIME WITH GOOD BLOOD RETURN. SAFETY PRECAUTIONS REINFORCED. CALL LIGHT IN REACH. WILL CONT TO MONITOR.
[2019-05-12 19:37] VITALS: BP 137/69
--- NOTE | 2019-05-12 21:30 | NUR ---
PATIENT RESTING ON AIR [id number]. NO NOVALOG COVERAGE REQUIRED AND GLUCOTROL HELD. PATIENT C/O PAIN TO BACK AND RIGHT UPPER CHEST-LORTAB 5/325MG PO GIVEN FOR PAIN. PROVIDED PATIENT WITH HS SNACK. SAFETY PRECAUTIONS REINFOORCED. CALL LIGHT IN REACH. WILL CONT TO MONITOR.
--- NOTE | 2019-05-13 | NUR ---
PATIENT RESTING IN BED-APPEARS SLEEPING WITH EYES CLOSED. PUREWICK DRAINING YELLOW URINE. FEET ELEVATED ON PILLOWS. CALL LIGHT IN REACH, WILL CONT TO MONITOR.
[2019-05-13 04:39] VITALS: BP 146/79
--- NOTE | 2019-05-13 04:56 | NUR ---
PATIENT RESTING IN BED-C/O BACK PAIN 6/10 ON PAIN SCALE. MEDICATED WITH LORTAB 5/325MG PO ORDRED FOR PAIN. PUREWICK DRAINED 1200CC OF CLOUDY YELLOW URINE. CANISTER CHANGED AND PUREWICK CHANGED. SMALL GREENISH BLACK STOOL. PERICARE DONE WITH SOAP AND WATER. TURNED AND REPOSITONED. NEW PURE WICK APPLIED. SMALL STAGE 2 TO RIGHT BUTTOCKS IS CLOSED AND HEALING WELL. BARRIER CREAM APPLIED. FEET ARE ELVATED ON PILLOWS WITH DRESSINGS AND HEEL PROTECTORS IN PLACE. CALL LIGHT IN REACH. WILL CONT TO MONITOR.
[2019-05-13 08:39] VITALS: BP 164/80
--- NOTE | 2019-05-13 08:39 | NUR ---
PT SITTING IN BED. A&O X3. NO DISTRESS NOTED. PURWICK IN PLACE CONNECTED TO CONTINUOUS SUCTION. EXPLAINED TO PT THAT HER DRESSINGS WOULD BE CHANGED THIS AFTERNOON. PT VERBALIZED UNDERSTANDING. NO NEEDS FROM THE PT AT THIS TIME. CALL LIGHT IN REACH. DISCUSSED POC. ASSESSMENT COMPLETED. CONTINUE TO MONITOR.
--- NOTE | 2019-05-13 11:13 | NUR ---
PT C/O OF GENERALIZED PAIN. LORTAB GIVEN.
[2019-05-13 11:45] VITALS: BP 153/72
--- NOTE | 2019-05-13 17:05 | NUR ---
DRESSING CHANGE COMPLETED. PT TOLERATED WELL. NO OTHER NEEDS AT THIS TIME. CALL LIGHT IN REACH. CONTINUE TO MONITOR
[2019-05-13 19:23] VITALS: BP 135/68
--- NOTE | 2019-05-13 19:30 | NUR ---
PATIENT SITTING UP IN RECLINER AT THIS TIME. AWAKE ALRT AND ORIENTEDX3. SALINE LOCK TO RIGHT FOREARM INTACT-APPEARS HEALTHY AT THIS ITME. CALL LIGHT IN REACH. WILL CONT TO MONITOR.
--- NOTE | 2019-05-13 20:15 | NUR ---
PATIENT MAX ASSIST BACK TO BED. PATIENT ON AIR MATTRESS. CONTACT PRECAUTIONS FOR ESBL IN PLACE. PATIENT GIVEN MARY JO-CARE AND NEW PUREWICK CATH APPLIED-DRAINING YELLOW URINE. BOTH HEEL DRESSINGS ARE INTACT. HEEL PROTECTORS IN PLACE AND ELEVATED ON PILLOWS. SMALL DECUB TO RIGHT BUTTOCKS IS CLOSED AT THIS TIME. PATIENT VERBALIZING CONCERNS REGUARDING ON POSS PLACEMENT OR WHERE SHE WILL GO FROM HERE. ALLOWED PATIENT TO EXPRESS HER FEELING AND OFFERED REASSURANCE. BANDAID TO RIGHT NECK INTACT. SMALL GAUZE DRESSING TO RIGHT CHEST IS CDI. SAFETY PRECAUTIONS REINFORCED. CALL LIGHT INREACH. WILL CONT TO MONITOR.
--- NOTE | 2019-05-14 00:28 | NUR ---
PATIENT APPEARS SLEEPING AT THIS TIME WITH EYES CLOSED ON AIR MATTRESS. RESP ARE EVEN AND UNLABORED. FEET ARE ELEVATED ON PILLOWS. CALL LIGHT IN REACH. WILL CONT TO MONITOR.
[2019-05-14 04:48] VITALS: BP 144/75
--- NOTE | 2019-05-14 05:00 | NUR ---
PATIENT RESTING IN BED ON AIR MATTRESS. APPEARS SLEEPING WITH EYES CLOSED. RESP ARE EVEN AND UNLABORED. BLE ELEVATED ON PILLOWS OFFLOADING BOTH HEELS. LAURA HEEL DRESSINGS AT [facility] AND HEEL PROTECTORS IN PLACE. PUREWICK INTACT AND DRAINING YELLOW URINE. DRESSIG TO RIGHT NECK AND RIGHT UPPER CHEST INTACT. SALINE LOCK TO RIGHT FOREARM SITE INTACT AND REMAINS HEALTHY. CALL LIGHT IN REACH. WILL CONT TO MONITOR.
[2019-05-14 09:00] VITALS: BP 155/66
--- NOTE | 2019-05-14 09:00 | NUR ---
assessment is completed: iv site is free from redness or edema. hr is reg,pulses are strong x4, abd is soft with active bs. breath sounds are clear bilaterally. dressing on feet are cdi. continue to observe and monitor.
--- NOTE | 2019-05-14 11:56 | NUR ---
Attmepted to see patient 2 times this morning by physical therapy staff of which pt. refused and requested for physical therapy at a later time. Pt. left resting in recliner without questions/concerns. Evaluating PT informed of same.
--- NOTE | 2019-05-14 12:00 | NUR ---
PT IS RELAXINF IN THE CHAIR, NO DISTRESS NOTED. IV SITE IS FREE FROM RENDESS OR EDEMA. DRESSING ON FEET ARE CDI. CONTINUE TO OBSERVE AND MONITOR.
--- NOTE | 2019-05-14 13:57 | NUR ---
Pt seen this pm for treatment. She was in recliner and cooperative with treatment. Pt required mod assist to stand from chair and CGA/min assist to move stand to sit, pt had tendency to flop into chair. Gait with RW 2x30' with CGA and verbal cues to stand tall. LE ex performed in sitting x 20 reps each. Gentle HS stretch done by therapist. [facility] 15. Pt left in chair with bedside table in front of her and call voss /phone in reach.
[2019-05-14 15:00] VITALS: BP 148/71
--- NOTE | 2019-05-14 16:00 | NUR ---
PT IS BACK IN TO BED FOR SUPPER. WILL CHANGE DRESSING PRIOR TO LEAVING. CONTINUE TO OBSERVE AND MONITOR.
--- NOTE | 2019-05-14 18:00 | NUR ---
REMOVED DRESSING ON BILATERAL FEET. PICTURES OBTAINED. REPLACED WITH DRY DRESSING AND ADHERENT . PT TOLERATED WELL. ABLE TO ASSIST BY HOLDING LEG UP TO CHANGE DRESSING. USING CLEAN TECHNIQUE.
[2019-05-14 18:55] VITALS: BP 150/77
--- NOTE | 2019-05-14 19:37 | NUR ---
GAVE REPORT TO ONCOMING SHIFT
--- NOTE | 2019-05-14 19:45 | NUR ---
ASSESSMENT COMPLETED. IV SITE PATENT AND SL. NO DISTRESS NOTED; BILATERAL HEELS ELEVATED ONTO PILLOW. UPDATED ON POC. BILATERAL HEEL DRESSINGS INTACT. DERMABOND NOTED TO RIGHT SIDE OF NECK. CALL LIGHT IS IN REACH. WILL CONTINUE TO MONITOR.
--- NOTE | 2019-05-14 19:49 | NUR ---
PT. RESTING IN BED WITH NO DISTRESS NOTED. DENIES NEEDS/PAIN. ASSESSMENT COMPLETED. IV SITE PATENT AND SL. PURE WIC IN PLACE. PO FLUIDS OFFERED. ENCOURAGED TO CALL FOR ANY NEEDS.UPDATED ON POC. WILL CONTINUE TO MONITOR.
--- NOTE | 2019-05-14 22:02 | NUR ---
PT. CLEANED OF A LARGE INCONTINENCE OF URINE, MARY JO CARE GIVEN, AND NEW GOWN AND PADS APPLIED. SCHED MED HUNG. PT. REPOSITIONED.PHOTO OBTAINED OF RIGHT BUTTOCK. CALL LIGHT IS IN REACH.
--- NOTE | 2019-05-15 00:49 | NUR ---
PT. C/O GENERALIZED PAIN AND MEDICATED WITH ORDERED PRN TYLENOL,WILL REASSESS.
[2019-05-15 04:40] VITALS: BP 171/90
--- NOTE | 2019-05-15 04:40 | NUR ---
PT. WAS MEDICATED FOR ELEVATED B/P 171/90 WITH PRN CLONIDINE, WILL REASSESS. PT. GIVEN CLEANED UP AND LINENS CHANGED. REPOSITIONED AT THIS TIME. DENIES FURTHER NEEDS. CALL LIGHT IS IN REACH.
[2019-05-15 06:08] VITALS: BP 154/84
[2019-05-15 07:55] VITALS: BP 157/85
--- NOTE | 2019-05-15 12:54 | NUR ---
PT UP IN CHAIR AT THIS TIME, EATS LUNCH. PT MEDICATED FOR GENERALIZED PAIN USING LORTAB. PHYSICAL THERAPY HAS AMBULATED WITH PT IN HALLWAY EARLIER.
[2019-05-15 14:45] VITALS: BP 156/81
--- NOTE | 2019-05-15 15:12 | NUR ---
[facility] SCORE TODAY: 16 POINTS PT WILL BENEFIT FROM IN-PT REHAB FOR CONTINUED CONDITIONING SHE DID [id number] FROM ELEVATED BED X 10 REPS WITH USE OF HANDS TO PUSH SELF UP. [id number] FROM RECLINER REQUIRED MULTIPLE ATTEMPTS WITH USE OF HANDS BUT WAS ABLE TO COMPLETE W/O ASSIST FROM THERAPIST. SHE THEN AMBULATED IN THE HALLWAY FROM HER ROOM TO THE [facility] BACK AND FORTH ~40 FT X 2 WITH RW AND SBA, WITHOUT REQUIRING REST BREAK FPC. PT CAN NOW SAFELY AND INDEPENDENTLY PERFORM TRANSFERS BED<>RECLINER WITH RW.
--- NOTE | 2019-05-15 16:14 | NUR ---
PT WAS ABLE TO STAND TO HER FEET FROM SITTING POSITION IN CHAIR, THIS AFTER SEVERAL EFFORTS. PT PLEASED WITH THE PROGRESS.
[2019-05-15 19:00] VITALS: BP 142/77
[2019-05-15 19:04] LABS: HEMATOCRIT 33.6 % (37.0-47.0); HEMOGLOBIN 10.3 g/dl (12.0-16.0); MEAN CELL VOLUME 92.6 fL CALC (80.0-100.0); MEAN CORPUSCULAR HGB 28.4 pG CALC (26.0-32.0); MEAN CORPUSCULAR HGB CONC 30.7 g/L CALC (32.0-36.0); RED BLOOD COUNT 3.63 mill/uL (4.20-5.60); RED CELL DISTRI WIDTH 14.6 % (11.5-15.5)
--- NOTE | 2019-05-15 19:30 | NUR ---
PATIENT RESTING IN BED AT THIS TIME-AWAKE ALERT AND ORIENTEDX3. STATES THAT SHE HAD GOOD DAY TODAY AND WAS ABLE TO SIT TO STAND ON HER OWN USING HER WALKER. PATIENT WITH SALINE LOCK TO RIGHT WRIST-HEALTHY AT THIS TIME. LAURA HEEL DSG INTACT AND HEELS ELEATED OFF THE BED WITH PILLOWS. PATIENT REMAINS ON CONTACT FOR ESBL. SAFETY PRECAUTIONS REINFORCED. CALL LIGHT IN REACH. WILL CONT TO MONITOR.
--- NOTE | 2019-05-15 21:16 | NUR ---
PATIENT RESTING IN BED AT THIS TIME.AWAKE ALERT AND ORIENTEDX3 REQUESTING PAIN MEDS-7/10 ON PAIN SCALE. MEDICATED WITH LORTAB 5/325MG. BS-153. PATIENT REFUSED NOVALOG BUT WAS MEDICATED WITH SCHEDULED GLUCOTROL. PATIENT STATES THAT SHE WAS JUST UP TO [facility] [place] BUT WAS UNABLE AT THIS TIME. REQUESTING PUREWICK FOR TONIGHT. WILL PLACE WHEN ABLE. SAFETY PRECAUTIONS REINFORCED. CALL LIGHT IN REACH. WILL CONT TO MONITOR.
--- NOTE | 2019-05-15 21:46 | NUR ---
PUREWICK APPLIED PER PATIENT REQUEST. ENCOURAGED PATIENT TO TRY TO GET U P AND US THE BSC TONIGHT BUT SAID THAT SHE JUST TRIED AND WAS NOT ABLE TO DO ANYTHING. DRAINING YELLOW URINE. LAURA HEEL DRESSINGS WERE CHANGED BY SIMBA RN-NO DRAINAGE NOTED. HEELS ELEVATED. SAFETY PREAUTION REINFORCED. CALL LIGHT IN REACH. WILL CONT TO MONITOR.
--- NOTE | 2019-05-16 01:31 | NUR ---
PATIENT APPEARS SLEEPING AT THIS TIME WITH EYES CLOSED. PATIENT IS RESTING ON AIR MATTRESS. FEET ELEVATED ON PILLOWS TO OFFLOAD BOTH HEELS. PUREWICK IN PLACE AND DRAINING YELLOW URINE. CALL LIGHT IN REACH.WILL CONT TO MONITOR.
[2019-05-16 04:00] VITALS: BP 155/81
--- NOTE | 2019-05-16 04:00 | NUR ---
PATIENT AWAKE ALERT AND ORIENTED RESTING ON AIR MATTRESS, PUREWICK DRAINING YELLOW URINE. LAURA HEELS ELEVATED ON PILLOWS TO OFFLOAD HEELS. CALL LIGHT IN REACH. WILL CONT TO MONITOR.
[2019-05-16 04:56] LABS: CREATININE 1.2 mg/dL (0.5-1.0); POTASSIUM 4.6 mmol/l (3.5-5.1)
--- NOTE | 2019-05-16 08:00 | NUR ---
PT IS SITTING IN THE CHAIR, NO DISTRESS NOTED. IV SITE IS FREE FROM REDNESS OR EDEMA.
[2019-05-16 10:00] VITALS: BP 128/61
--- NOTE | 2019-05-16 10:00 | NUR ---
PT BACK IN TO BED SITTING ON THE SIDE. NO DISTRESS NOTED.IV SITE IS FREE FROM REDNESS OR EDEMA. HR IS REG,PULSES ARE STRONG X4, ABD IS SOFT WITH ACTIVE BS. BREATH SOUNDS ARE CLEAR,BILATERALLY, DRESSING ON BILATERAL FEET ARE CDI. CONTINUE TO OBSERVE AND MONITOR.
--- NOTE | 2019-05-16 12:00 | NUR ---
PT IS RELAXIXNG IN BED WITH NO DISTRESS NOTED. IV SITE IS FREE FROM REDNESS OR EDEMA.
--- NOTE | 2019-05-16 14:09 | NUR ---
AMPAC SCORE TODAY: 17 POINTS PT WILL BENEFIT FROM IN-PT REHAB. SHE WAS ABLE TO STAND UP FROM ELEVATED CHAIR WITH LESS DIFFICULTY TODAY, THEN AMBULATED IN THE HALLWAY X 30 FT X 2 WITH A RW AND CGA. SHE WAS MORE TOLERANT OF FA TODAY. SHE COULD BE DISCHARGED HOME WITH HOME HEALTH THERAPY IF WITH CAREGIVER/FAMILY MEMBER AT HOME TO ASSIST HER NECESSARY.
[2019-05-16 15:27] VITALS: BP 150/67
--- NOTE | 2019-05-16 16:30 | NUR ---
PT HAS BEEN RESTING IN BED WITH NO DISTRESS NOTED. IV SITE IS FREE FROM REDNESS OR EDEMA. DRESSING WAS CHANGED LATE LAST NIGHT CONTINUE TO BE CDI.
[2019-05-16 18:46] VITALS: BP 140/81
--- NOTE | 2019-05-16 20:35 | NUR ---
PT. A/O X3. ABLE TO MAKE NEEDS KNOWN. NO ACUTE DISTRESS. DENIES ANY PAIN OR DISCOMFORT. MEDICATIONS ADMINISTERD PER MD ORDER. TOLERATED WELL. PT. AWAKE IN BED WITH CALL LIGHT WITHIN REACH.
--- NOTE | 2019-05-17 00:20 | NUR ---
PT.RESTING IN BED WITH EYES CLOSED. NO ACUTE DISTRESS NOTED. CALL LIGHT WITHIN REACH BED IN THE LOWEST POSITION
[2019-05-17 03:49] VITALS: BP 147/64
--- NOTE | 2019-05-17 04:20 | NUR ---
PT. RESTING IN BED. A.M. MEDICATIONS GIVEN PER MD ORDER. TOLERATED WELL. CALL LIGHT WITHIN REACH.
--- NOTE | 2019-05-17 08:30 | NUR ---
PHYSICAL THERAPY HAS BEEN IN TO VISIT WITH PT. AND AMBULATED IN THE BEAULIEU AND IN THE ROOM. TOLERATED WELL.
[2019-05-17 10:10] VITALS: BP 117/61
--- NOTE | 2019-05-17 10:10 | NUR ---
ASSESSMENT IS COMPLETED: IV SITE IS FREE FROM REDNESS OR EDEMA. HR IS REG,PULSES ARE STRONG X4, ABD IS SOFT WITH ACTIVE BS. BREATH SOUNDS ARE CLEAR,BILATERALLY, CONTINEU TO OBSERVE AND MONITOR. DRESSING ON BILAT FEET ARE CDI.
--- NOTE | 2019-05-17 10:24 | NUR ---
Pt seen this am for treatment. She was on commode chair and stood with supervision only, used RW to transfer to bed. Pt reported having electric bed at home which is higher and has an old lift chair at home. She ambulated 2 x 40 and 1 x 30' with RW and SBA. Pt posture was more erect and gait pattern was good. Pt performed LE ex in sitting with verbal cues/instructions. She tolerated treatment well and was without complaints. AMPA 6 unchanged. Pt left in chair with call voss and bedside tray in reach.
--- NOTE | 2019-05-17 12:15 | NUR ---
PT IS SITTING IN THE CHAIR. TALKING WITH FAMILY RE: GOING HOME DUE TO REHAB NOT ACCEPTING.
[2019-05-17] MEDS ORDERED: GLIPIZIDE ER2.5 MG PO (13:04)
[2019-05-17 15:00] VITALS: BP 127/64
--- NOTE | 2019-05-17 15:30 | NUR ---
IV TAKEN OUT PT HAD PLANS FOR DISCHARGE. CATHETER INTAC.T
--- NOTE | 2019-05-17 16:30 | NUR ---
SPOKE WITH MARTINA ACOSTA RE: PT NOT GOING HOME TODAY. THE IV WAS TAKEN OUT., NO PROBLEM TO KEEP OUT.
[2019-05-17 20:00] VITALS: BP 135/74
--- NOTE | 2019-05-17 21:00 | NUR ---
pt not given insulin bc it wasnt appropriate at the time. bs 135
[2019-05-18 04:17] VITALS: BP 148/65
--- NOTE | 2019-05-18 05:43 | NUR ---
pt c/o feeling tired and that she thinks her bs is low. bs checked and results were 47. notified. ordered recieved will recheck bs after dextrose infuses.
[2019-05-18 08:00] VITALS: BP 138/78
--- NOTE | 2019-05-18 08:15 | NUR ---
PATIENT A\OX4, NO S/S RESP DISTRESS, PATIENT ON ROOM AIR, PATIENT NO C/O PAIN, PATIENT, PATIENT BLOOD 143, NO COVERAGE PER MD ORDERED SLIDING SCALE, WILL CONTINUE TO MONITOR PATIENT HOURLY ROUNDING, CALL LIGHT WITHIN REACH
[2019-05-18 09:13] VITALS: BP 138/78
--- NOTE | 2019-05-18 12:20 | NUR ---
PATIENT A/OX4, NO S/S RESP DISTRESS, PATIENT C/O LOWER BACK PAIN 11/15 APPROX 1145, PATIENT PAIN DECREASE TO 5/10 IN BACK AFTER GIVEN PAIN MED, EDUCATED PATIENT MD DC INSTRUCTION, PATIENT DC TO HOME WITH HOME HEALTH, PATIENT UNDERSTOOD DC INSTRUCTIONS, WILL CONTINUE MONITOR PATIENT HOURLY UNTIL FAMILY MEMBER ARRIVES
== END 2019-05-18 13:44 | disposition home health service (06) | DRG 982 ==
LOC: ED 11:47 → ED-I 13:33 → ED 13:44 → MS2 13:45
PROVIDERS: Family Medicine; Nurse Practitioner Family; ADMIT Internal Medicine; ATTEND Internal Medicine
PROC: 05PY03Z Removal of Infusion Device from Upper Vein, Open Approach (ICD-10-PCS; principal; 2019-05-12)
PROC: 0JPTXXZ Removal of Tunneled Vascular Access Device from Trunk Subcutaneous Tissue and Fascia, External Approach (ICD-10-PCS; 2019-05-12)
DX: N39.0 Urinary tract infection, site not specified (principal); Z16.12 Extended spectrum beta lactamase (ESBL) resistance; L89.620 Pressure ulcer of left heel, unstageable; L89.610 Pressure ulcer of right heel, unstageable; R62.7 Adult failure to thrive; I10 Essential (primary) hypertension; E11.9 Type 2 diabetes mellitus without complications; I25.10 Atherosclerotic heart disease of native coronary artery without angina pectoris; M06.9 Rheumatoid arthritis, unspecified; M62.81 Muscle weakness (generalized); L08.9 Local infection of the skin and subcutaneous tissue, unspecified; R32 Unspecified urinary incontinence; J44.9 Chronic obstructive pulmonary disease, unspecified; F32.9 Major depressive disorder, single episode, unspecified; M62.59 Muscle wasting and atrophy, not elsewhere classified, multiple sites; R26.89 Other abnormalities of gait and mobility; B96.20 Unspecified Escherichia coli [E. coli] as the cause of diseases classified elsewhere; Z79.84 Long term (current) use of oral hypoglycemic drugs; Z96.641 Presence of right artificial hip joint; Z68.27 Body mass index [BMI] 27.0-27.9, adult; Z60.2 Problems related to living alone; Z95.1 Presence of aortocoronary bypass graft; Z95.828 Presence of other vascular implants and grafts
CPT/HCPCS: G0378; J1650

== ENCOUNTER 2019-07-19 | Emergency (ER) | payer MEDICARE, MEDICAID ==
[~2019-07-19] MED LIST changes: +FERR SULFATE325 MG PO; +GLIPIZIDE ER2.5 MG PO; +LOVENOX 3030 MG/0.3 SC; +MILK OF MAG30 ML/UDC PO; +NORVASC5 M1 PO; +WIXELA INHUB 251 AER IN
[2019-07-19] MEDS ORDERED: NAPROXEN500 MG PO (23:14)
== END 2019-07-20 | disposition home or self-care (01) ==
DX: S09.90XA Unspecified injury of head, initial encounter (principal); S53.401A Unspecified sprain of right elbow, initial encounter; I10 Essential (primary) hypertension; E11.9 Type 2 diabetes mellitus without complications; J44.9 Chronic obstructive pulmonary disease, unspecified; W06.XXXA Fall from bed, initial encounter; Y92.003 Bedroom of unspecified non-institutional (private) residence as the place of occurrence of the external cause; Z95.1 Presence of aortocoronary bypass graft

== ENCOUNTER 2020-05-19 15:47 | Emergency (ER) | payer MEDICARE, MEDICAID ==
[~2020-05-19] VITALS: Ht 177.8 cm; Wt 93.2 kg
[~2020-05-19 15:47] MED LIST changes: +NAPROXEN500 MG PO
[2020-05-19 20:50] LABS: HEMATOCRIT 32.9 % (37.0-47.0); HEMOGLOBIN 10.4 g/dl (12.0-16.0); IMMATURE GRANULOCYTES 1.3 % (0.0-5.0); MEAN CELL VOLUME 91.1 fL CALC (80.0-100.0); MEAN CORPUSCULAR HGB 28.8 pG CALC (26.0-32.0); MEAN CORPUSCULAR HGB CONC 31.6 g/dL CAL (32.0-36.0); NEUT# 4.81 thou/uL (2.00-7.15); RED BLOOD COUNT 3.61 mill/uL (4.20-5.60); RED CELL DISTRI WIDTH 13.6 % (11.5-15.5)
[2020-05-19 21:03] VITALS: BP 164/72
[2020-05-19 21:13] LABS: ALBUMIN 3.8 g/dL (3.2-5.0); ALKALINE PHOSPHATASE 128 u/l (38-126); ANION GAP 10 (6-22 (CALC)); BILIRUBIN, TOTAL 0.4 mg/dL (0.0-1.4); BUN 34 mg/dL (8-23); BUN/CREATININE RATIO 33 (12-20 (CALC)); CARBON DIOXIDE 25 mmol/l (22-30); CHLORIDE 108 mmol/l (95-108); GFR 56 ML/MIN (>=60 (CALC)); GFR FOR AFR.AMER. > 60 ML/MIN (>=60 (CALC)); POTASSIUM 4.9 mmol/l (3.5-5.1); SGOT/AST 37 u/l (9-36); SODIUM 138 mmol/l (137-146); TOTAL PROTEIN 6.7 g/dL (6.3-8.2)
[2020-05-19] MEDS ORDERED: NAPROXEN500 MG PO (21:15)
== END 2020-05-19 21:15 | disposition home or self-care (01) ==
LOC: ED 15:47
PROVIDERS: Emergency Medicine
DX: S70.01XA Contusion of right hip, initial encounter (principal); I10 Essential (primary) hypertension; E11.9 Type 2 diabetes mellitus without complications; J44.9 Chronic obstructive pulmonary disease, unspecified; M06.9 Rheumatoid arthritis, unspecified; W17.89XA Other fall from one level to another, initial encounter; Y92.009 Unspecified place in unspecified non-institutional (private) residence as the place of occurrence of the external cause

== ENCOUNTER 2021-02-21 11:17 | Emergency (ER) | payer MEDICARE, MEDICAID ==
[~2021-02-21] VITALS: Ht 177.8 cm; Wt 96.8 kg
[2021-02-21 13:00] VITALS: BP 156/89
== END 2021-02-21 13:00 | disposition home or self-care (01) ==
LOC: ED 11:17
DX: M25.552 Pain in left hip (principal); I10 Essential (primary) hypertension; E11.9 Type 2 diabetes mellitus without complications; J44.9 Chronic obstructive pulmonary disease, unspecified; I25.10 Atherosclerotic heart disease of native coronary artery without angina pectoris; M06.9 Rheumatoid arthritis, unspecified; W17.89XA Other fall from one level to another, initial encounter; Y92.009 Unspecified place in unspecified non-institutional (private) residence as the place of occurrence of the external cause; Z96.641 Presence of right artificial hip joint; Z95.1 Presence of aortocoronary bypass graft

== ENCOUNTER 2022-05-29 11:50 | Emergency (ER) | payer MEDICARE, MEDICAID ==
[~2022-05-29] VITALS: Ht 177.8 cm; Wt 115.0 kg
[2022-05-29 15:10] VITALS: BP 175/68
== END 2022-05-29 15:38 | disposition home or self-care (01) ==
LOC: ED 11:50
PROC: 2W3DX1Z Immobilization of Left Lower Arm using Splint (ICD-10-PCS; principal; 2022-05-29)
DX: S52.502A Unspecified fracture of the lower end of left radius, initial encounter for closed fracture (principal); M06.9 Rheumatoid arthritis, unspecified; J44.9 Chronic obstructive pulmonary disease, unspecified; M85.80 Other specified disorders of bone density and structure, unspecified site; E11.22 Type 2 diabetes mellitus with diabetic chronic kidney disease; I12.0 Hypertensive chronic kidney disease with stage 5 chronic kidney disease or end stage renal disease; N18.6 End stage renal disease; W01.0XXA Fall on same level from slipping, tripping and stumbling without subsequent striking against object, initial encounter; Y92.002 Bathroom of unspecified non-institutional (private) residence as the place of occurrence of the external cause; Z99.2 Dependence on renal dialysis; Z95.1 Presence of aortocoronary bypass graft

== ENCOUNTER 2022-07-28 12:43 | Observation (INO) | payer MEDICARE, MEDICAID ==
[2022-07-28] VITALS (14 sets, daily range): BP systolic 120–157; BP diastolic 50–70
[~2022-07-28] VITALS: Ht 177.8 cm; Wt 200.0 kg
[2022-07-28 14:08] LABS: BASO% 0.3 % (0-3); EOS% 0.2 % (0-8); HEMOGLOBIN 10.4 g/dl (12.0-16.0); IMMATURE GRANULOCYTES 4.4 % (0.0-5.0); LYMPH% 16.6 % (15-41); MEAN CELL VOLUME 88.5 fL CALC (80.0-100.0); MEAN CORPUSCULAR HGB 27.9 pG CALC (26.0-32.0); MEAN CORPUSCULAR HGB CONC 31.5 g/dL CAL (32.0-36.0); MONO% 9.2 % (2-13); NEUT# 4.44 thou/uL (2.00-7.15); NEUT% 69.3 % (42-76); RED BLOOD COUNT 3.73 mill/uL (4.20-5.60); RED CELL DISTRI WIDTH 12.9 % (11.5-15.5)
[2022-07-28 14:18] LABS: PROTHROMBIN TIME 9.6 SECONDS (9.0-12.5)
[2022-07-28 14:23] LABS: ALBUMIN 3.9 g/dL (3.2-5.0); CREATININE 1.6 mg/dL (0.5-1.0); MAGNESIUM 2.1 mg/dL (1.6-2.3); TOTAL PROTEIN 6.8 g/dL (6.3-8.2)
[2022-07-28 14:31] LABS: BILIRUBIN, TOTAL 0.5 mg/dL (0.02-1.3); POTASSIUM 5.5 mmol/l (3.5-5.1)
[2022-07-28] MEDS ORDERED: LOPRESSOR50 M1 PO (18:25)
[2022-07-28] MEDS ORDERED: PROTONIX40 M2 PO (21:43)
[2022-07-28] MEDS ORDERED: CLONAZEP ODT0.25 MG PO (21:43)
[2022-07-28] MEDS ORDERED: HYDROXYCHLOR200 M1 PO (21:44)
[2022-07-28] MEDS ORDERED: IBANDRONATE SO150 MG PO (21:44)
[2022-07-28] MEDS ORDERED: CETIRIZINE10 MG PO (21:45)
[2022-07-28] MEDS ORDERED: LASIX 20 MG TAB20 MG PO (21:45)
[2022-07-28] MEDS ORDERED: COZAAR100 MG PO (21:47)
[2022-07-28] MEDS ORDERED: MAXZIDE-25MG1 COMBO PO (21:47)
[2022-07-28] MEDS ORDERED: LIPITOR80 M1 PO (21:48)
[2022-07-28] MEDS ORDERED: XELJANZ XR11 MG PO (21:48)
[2022-07-28] MEDS ORDERED: GLIPIZIDE ER2.5 MG PO (21:49)
[2022-07-28] MEDS ORDERED: [UNRECOGNIZED DRUG - OTHER] PO (21:50)
[2022-07-28] MEDS ORDERED: PROVENTIL HFA108 MCG IN (21:52)
[2022-07-28] MEDS ORDERED: FIORICET PO (21:52)
[2022-07-29 03:23] VITALS: BP 132/51
[2022-07-29 06:07] VITALS: BP 135/49
[2022-07-29 06:16] LABS: HEMATOCRIT 31.4 % (37.0-47.0); MEAN CELL VOLUME 87.7 fL CALC (80.0-100.0); MEAN CORPUSCULAR HGB 27.9 pG CALC (26.0-32.0); MEAN CORPUSCULAR HGB CONC 31.8 g/dL CAL (32.0-36.0); RED BLOOD COUNT 3.58 mill/uL (4.20-5.60)
[2022-07-29 06:41] LABS: ALBUMIN 3.7 g/dL (3.2-5.0); BILIRUBIN, TOTAL 0.3 mg/dL (0.02-1.3); CREATININE 1.4 mg/dL (0.5-1.0); MAGNESIUM 2.2 mg/dL (1.6-2.3); POTASSIUM 4.8 mmol/l (3.5-5.1); TOTAL PROTEIN 6.9 g/dL (6.3-8.2)
[2022-07-29 10:00] VITALS: BP 119/53
[2022-07-29 11:26] LABS: URINE BILIRUBIN - DIPSTICK NEGATIVE (NEGATIVE); URINE BLOOD DIPSTICK TRACE-INTACT (NEGATIVE); URINE CLARITY CLOUDY; URINE COLOR YELLOW; URINE GLUCOSE - DIPSTICK NEGATIVE (NEGATIVE); URINE KETONE NEGATIVE (NEGATIVE); URINE LEUK ESTERASE SMALL (Negative); URINE NITRITE - DIPSTICK NEGATIVE (Negative); URINE PROTEIN - DIPSTICK NEGATIVE (NEG-TRACE); URINE UROBILINOGEN - DIPSTICK 0.2 E.U./dL (0.2)
[2022-07-29 11:27] LABS: URINE BACTERIA FEW hpf; URINE EPITHELIAL CELLS MODERATE EPI/hpf (0-FEW); URINE RBC 0-2 RBC/hpf (0-5)
[2022-07-29 13:25] VITALS: BP 108/51
[2022-07-29 20:21] VITALS: BP 150/68
[2022-07-30 02:44] VITALS: BP 162/57
[2022-07-30 05:45] LABS: BASO% 0.5 % (0-3); HEMATOCRIT 29.1 % (37.0-47.0); HEMOGLOBIN 9.2 g/dl (12.0-16.0); IMMATURE GRANULOCYTES 4.1 % (0.0-5.0); LYMPH% 10.6 % (15-41); MEAN CELL VOLUME 89.3 fL CALC (80.0-100.0); MEAN CORPUSCULAR HGB 28.2 pG CALC (26.0-32.0); MEAN CORPUSCULAR HGB CONC 31.6 g/dL CAL (32.0-36.0); MONO% 12.6 % (2-13); NEUT# 4.63 thou/uL (2.00-7.15); NEUT% 72.2 % (42-76); RED BLOOD COUNT 3.26 mill/uL (4.20-5.60); RED CELL DISTRI WIDTH 13.1 % (11.5-15.5)
[2022-07-30 05:58] LABS: ALBUMIN 3.2 g/dL (3.2-5.0); BILIRUBIN, TOTAL 0.2 mg/dL (0.02-1.3); CREATININE 1.1 mg/dL (0.5-1.0); TOTAL PROTEIN 5.7 g/dL (6.3-8.2)
[2022-07-30 06:00] LABS: POTASSIUM 5.2 mmol/l (3.5-5.1)
[2022-07-30 06:05] VITALS: BP 138/52
[2022-07-30] MEDS ORDERED: FIORICET PO (10:12)
[2022-07-30 11:25] VITALS: BP 156/61
== END 2022-07-30 12:38 ==
LOC: ED 12:43 → ED-I 13:43 → ED 16:14 → MS2 16:15
PROVIDERS: Emergency Medicine; Nurse Practitioner Family; ADMIT Internal Medicine; ATTEND Internal Medicine
DX: U07.1 COVID-19 (principal); A08.39 Other viral enteritis; E87.1 Hypo-osmolality and hyponatremia; E87.5 Hyperkalemia; I10 Essential (primary) hypertension; E11.9 Type 2 diabetes mellitus without complications; K21.9 Gastro-esophageal reflux disease without esophagitis; J44.9 Chronic obstructive pulmonary disease, unspecified; I25.10 Atherosclerotic heart disease of native coronary artery without angina pectoris; K58.9 Irritable bowel syndrome, unspecified; M06.9 Rheumatoid arthritis, unspecified; Z95.1 Presence of aortocoronary bypass graft; I25.2 Old myocardial infarction; T50.2X5A Adverse effect of carbonic-anhydrase inhibitors, benzothiadiazides and other diuretics, initial encounter
CPT/HCPCS: J1650

== ENCOUNTER 2023-01-30 15:54 | Inpatient (IN) | payer MEDICARE, MEDICAID ==
[2023-01-30] VITALS (8 sets, daily range): BP systolic 110–150; BP diastolic 39–72
[~2023-01-30] VITALS: Ht 160 cm; Wt 88.0 kg
[~2023-01-30 15:54] MED LIST changes: +CLONAZEP ODT0.25 MG PO; +COZAAR100 MG PO; +FIORICET PO; +HYDROXYCHLOR200 M1 PO; +IBANDRONATE SO150 MG PO; +LASIX 20 MG TAB20 MG PO; +LIPITOR80 M1 PO; +LOPRESSOR50 M1 PO; +MAXZIDE-25MG1 COMBO PO; +PROVENTIL HFA108 MCG IN; +XELJANZ XR11 MG PO; +[UNRECOGNIZED DRUG - OTHER] PO
[2023-01-30 17:12] LABS: BASO% 0.2 % (0-3); EOS% 0.1 % (0-8); HEMATOCRIT 33.9 % (37.0-47.0); HEMOGLOBIN 10.5 g/dl (12.0-16.0); IMMATURE GRANULOCYTES 3.6 % (0.0-5.0); LYMPH% 3.8 % (15-41); MEAN CELL VOLUME 94.2 fL CALC (80.0-100.0); MEAN CORPUSCULAR HGB 29.2 pG CALC (26.0-32.0); MONO% 6.6 % (2-13); NEUT# 14.59 thou/uL (2.00-7.15); NEUT% 85.7 % (42-76); RED BLOOD COUNT 3.6 mill/uL (4.20-5.60); RED CELL DISTRI WIDTH 12.4 % (11.5-15.5)
[2023-01-30 17:23] LABS: CREATININE 1.5 mg/dL (0.5-1.0); POTASSIUM 4.5 mmol/l (3.5-5.1)
[2023-01-30 17:26] LABS: ALBUMIN 3.3 g/dL (3.2-5.0)
[2023-01-30] MEDS ORDERED: COZAAR100 MG PO (18:49)
[2023-01-30] MEDS ORDERED: SLOW FE142 MG PO (18:50)
[2023-01-30] MEDS ORDERED: LORTAB 5/3255 MG PO (18:51)
[2023-01-30] MEDS ORDERED: MAXZIDE-25MG1 COMBO PO (18:52)
[2023-01-31] VITALS (22 sets, daily range): BP systolic 116–163; BP diastolic 48–71
[2023-01-31 05:41] LABS: HEMATOCRIT 28.8 % (37.0-47.0); HEMOGLOBIN 9.2 g/dl (12.0-16.0); MEAN CELL VOLUME 91.4 fL CALC (80.0-100.0); MEAN CORPUSCULAR HGB 29.2 pG CALC (26.0-32.0); MEAN CORPUSCULAR HGB CONC 31.9 g/dL CAL (32.0-36.0); RED BLOOD COUNT 3.15 mill/uL (4.20-5.60); RED CELL DISTRI WIDTH 12.4 % (11.5-15.5)
[2023-01-31 05:59] LABS: CREATININE 1.4 mg/dL (0.5-1.0); POTASSIUM 3.8 mmol/l (3.5-5.1); TOTAL PROTEIN 5.6 g/dL (6.3-8.2)
[2023-01-31 06:02] LABS: ALBUMIN 2.6 g/dL (3.2-5.0); BILIRUBIN, TOTAL 0.5 mg/dL (0.02-1.3)
[2023-02-01] VITALS (22 sets, daily range): BP systolic 88–151; BP diastolic 31–81
[2023-02-01 01:26] LABS: URINE BILIRUBIN - DIPSTICK Negative (NEGATIVE); URINE BLOOD DIPSTICK Moderate (NEGATIVE); URINE COLOR Yellow; URINE GLUCOSE - DIPSTICK Negative (NEGATIVE); URINE KETONE Trace mg/dL (NEGATIVE); URINE LEUK ESTERASE Large (NEGATIVE); URINE NITRITE - DIPSTICK Negative (Negative); URINE PROTEIN - DIPSTICK 100 mg/dL (NEG-TRACE); URINE UROBILINOGEN - DIPSTICK 0.2 E.U./dL (0.2)
[2023-02-01 01:34] LABS: URINE SQUAMOUS EPITHELIAL CELL FEW EPI/hpf (0-FEW); URINE WBC 20-50 WBC/hpf (0-5)
[2023-02-01 01:35] LABS: URINE BACTERIA MODERATE hpf; URINE MUCUS FEW hpf (NONE-FEW)
[2023-02-01 05:40] LABS: HEMATOCRIT 27.9 % (37.0-47.0); HEMOGLOBIN 8.8 g/dl (12.0-16.0); MEAN CELL VOLUME 93.3 fL CALC (80.0-100.0); MEAN CORPUSCULAR HGB 29.4 pG CALC (26.0-32.0); MEAN CORPUSCULAR HGB CONC 31.5 g/dL CAL (32.0-36.0); RED BLOOD COUNT 2.99 mill/uL (4.20-5.60); RED CELL DISTRI WIDTH 12.7 % (11.5-15.5)
[2023-02-01 05:58] LABS: ALBUMIN 2.7 g/dL (3.2-5.0); BILIRUBIN, TOTAL 0.5 mg/dL (0.02-1.3); CREATININE 1.6 mg/dL (0.5-1.0); POTASSIUM 3.9 mmol/l (3.5-5.1); TOTAL PROTEIN 6.2 g/dL (6.3-8.2)
[2023-02-02] VITALS (8 sets, daily range): BP systolic 126–145; BP diastolic 42–60
[2023-02-02 05:20] LABS: HEMATOCRIT 25.6 % (37.0-47.0); HEMOGLOBIN 7.8 g/dl (12.0-16.0); MEAN CELL VOLUME 96.2 fL CALC (80.0-100.0); MEAN CORPUSCULAR HGB 29.3 pG CALC (26.0-32.0); MEAN CORPUSCULAR HGB CONC 30.5 g/dL CAL (32.0-36.0); RED BLOOD COUNT 2.66 mill/uL (4.20-5.60); RED CELL DISTRI WIDTH 13.1 % (11.5-15.5)
[2023-02-02 05:35] LABS: ALBUMIN 2.3 g/dL (3.2-5.0); BILIRUBIN, TOTAL 0.5 mg/dL (0.02-1.3); CREATININE 1.4 mg/dL (0.5-1.0); MAGNESIUM 1.8 mg/dL (1.6-2.3); POTASSIUM 3.6 mmol/l (3.5-5.1); TOTAL PROTEIN 5.2 g/dL (6.3-8.2)
[2023-02-03] VITALS (12 sets, daily range): BP systolic 139–172; BP diastolic 52–73
[2023-02-03 05:23] LABS: HEMATOCRIT 25.7 % (37.0-47.0); HEMOGLOBIN 7.7 g/dl (12.0-16.0); MEAN CELL VOLUME 95.9 fL CALC (80.0-100.0); MEAN CORPUSCULAR HGB 28.7 pG CALC (26.0-32.0); RED BLOOD COUNT 2.68 mill/uL (4.20-5.60); RED CELL DISTRI WIDTH 13.2 % (11.5-15.5)
[2023-02-03 05:41] LABS: ALBUMIN 2.3 g/dL (3.2-5.0); BILIRUBIN, TOTAL 0.3 mg/dL (0.02-1.3); CREATININE 1.2 mg/dL (0.5-1.0); MAGNESIUM 1.7 mg/dL (1.6-2.3); POTASSIUM 3.7 mmol/l (3.5-5.1); TOTAL PROTEIN 5.2 g/dL (6.3-8.2)
[2023-02-04] VITALS (8 sets, daily range): BP systolic 129–165; BP diastolic 45–90
[2023-02-04 05:25] LABS: BASO% 0.2 % (0-3); EOS% 0.9 % (0-8); HEMATOCRIT 26.2 % (37.0-47.0); LYMPH% 6.4 % (15-41); MEAN CELL VOLUME 95.3 fL CALC (80.0-100.0); MEAN CORPUSCULAR HGB 29.1 pG CALC (26.0-32.0); MEAN CORPUSCULAR HGB CONC 30.5 g/dL CAL (32.0-36.0); MONO% 8.8 % (2-13); NEUT# 10.65 thou/uL (2.00-7.15); NEUT% 78.7 % (42-76); RED BLOOD COUNT 2.75 mill/uL (4.20-5.60); RED CELL DISTRI WIDTH 13.3 % (11.5-15.5)
[2023-02-04 05:40] LABS: ALBUMIN 2.6 g/dL (3.2-5.0); CREATININE 1.1 mg/dL (0.5-1.0); MAGNESIUM 1.6 mg/dL (1.6-2.3); POTASSIUM 3.6 mmol/l (3.5-5.1); TOTAL PROTEIN 6.2 g/dL (6.3-8.2)
[2023-02-04 05:45] LABS: BILIRUBIN, TOTAL 0.5 mg/dL (0.02-1.3)
[2023-02-05] VITALS (7 sets, daily range): BP systolic 152–182; BP diastolic 56–73
[2023-02-05 07:35] LABS: BASO% 0.3 % (0-3); EOS% 0.8 % (0-8); HEMATOCRIT 26.1 % (37.0-47.0); HEMOGLOBIN 7.9 g/dl (12.0-16.0); LYMPH% 7.1 % (15-41); MEAN CELL VOLUME 97.4 fL CALC (80.0-100.0); MEAN CORPUSCULAR HGB 29.5 pG CALC (26.0-32.0); MEAN CORPUSCULAR HGB CONC 30.3 g/dL CAL (32.0-36.0); MONO% 10.2 % (2-13); NEUT# 7.04 thou/uL (2.00-7.15); NEUT% 71.2 % (42-76); RED BLOOD COUNT 2.68 mill/uL (4.20-5.60); RED CELL DISTRI WIDTH 13.4 % (11.5-15.5)
[2023-02-05 07:36] LABS: IMMATURE GRANULOCYTES 10.4 % (0.0-5.0)
[2023-02-05 07:51] LABS: ALBUMIN 2.2 g/dL (3.2-5.0); ALKALINE PHOSPHATASE 120 u/l (38-126); ANION GAP 11 (6-22 (CALC)); BILIRUBIN, TOTAL 0.5 mg/dL (0.02-1.3); BUN 17 mg/dL (8-23); BUN/CREATININE RATIO 18 (12-20 (CALC)); CARBON DIOXIDE 15 mmol/l (22-30); CHLORIDE 114 mmol/l (95-108); GFR FOR AFR.AMER. > 60 ML/MIN (>=60 (CALC)); GFR OTHER RACES 55 ML/MIN (>=60 (CALC)); MAGNESIUM 1.4 mg/dL (1.6-2.3); POTASSIUM 4.1 mmol/l (3.5-5.1); SGOT/AST 24 u/l (9-36); SODIUM 135 mmol/l (137-146); TOTAL PROTEIN 5.3 g/dL (6.3-8.2)
[2023-02-06] VITALS (7 sets, daily range): BP systolic 151–170; BP diastolic 47–69
[2023-02-06 05:41] LABS: HEMATOCRIT 26.6 % (37.0-47.0); HEMOGLOBIN 8.1 g/dl (12.0-16.0); MEAN CORPUSCULAR HGB 28.9 pG CALC (26.0-32.0); MEAN CORPUSCULAR HGB CONC 30.5 g/dL CAL (32.0-36.0); RED BLOOD COUNT 2.8 mill/uL (4.20-5.60); RED CELL DISTRI WIDTH 13.4 % (11.5-15.5)
[2023-02-06 06:07] LABS: ALBUMIN 2.6 g/dL (3.2-5.0); BILIRUBIN, TOTAL 0.4 mg/dL (0.02-1.3); CREATININE 1.1 mg/dL (0.5-1.0); POTASSIUM 3.9 mmol/l (3.5-5.1); TOTAL PROTEIN 6.2 g/dL (6.3-8.2)
[2023-02-06 06:15] LABS: MAGNESIUM 1.8 mg/dL (1.6-2.3)
[2023-02-07] VITALS (10 sets, daily range): BP systolic 122–190; BP diastolic 50–82
[2023-02-07 05:52] LABS: HEMATOCRIT 27.9 % (37.0-47.0); HEMOGLOBIN 8.3 g/dl (12.0-16.0); MEAN CELL VOLUME 96.9 fL CALC (80.0-100.0); MEAN CORPUSCULAR HGB 28.8 pG CALC (26.0-32.0); MEAN CORPUSCULAR HGB CONC 29.7 g/dL CAL (32.0-36.0); RED BLOOD COUNT 2.88 mill/uL (4.20-5.60); RED CELL DISTRI WIDTH 13.4 % (11.5-15.5)
[2023-02-07 06:06] LABS: ALBUMIN 2.3 g/dL (3.2-5.0); ALKALINE PHOSPHATASE 111 u/l (38-126); ANION GAP 10 (6-22 (CALC)); BILIRUBIN, TOTAL 0.4 mg/dL (0.02-1.3); BUN 15 mg/dL (8-23); BUN/CREATININE RATIO 17 (12-20 (CALC)); CARBON DIOXIDE 16 mmol/l (22-30); CHLORIDE 112 mmol/l (95-108); CREATININE 0.9 mg/dL (0.5-1.0); GFR FOR AFR.AMER. > 60 ML/MIN (>=60 (CALC)); GFR OTHER RACES > 60 ML/MIN (>=60 (CALC)); MAGNESIUM 1.9 mg/dL (1.6-2.3); POTASSIUM 4.4 mmol/l (3.5-5.1); SGOT/AST 31 u/l (9-36); SODIUM 135 mmol/l (137-146); TOTAL PROTEIN 5.4 g/dL (6.3-8.2)
[2023-02-08 01:53] VITALS: BP 185/68
[2023-02-08 06:31] VITALS: BP 176/66
[2023-02-08 08:48] LABS: BASO% 0.2 % (0-3); EOS% 0.3 % (0-8); HEMATOCRIT 25.9 % (37.0-47.0); HEMOGLOBIN 7.7 g/dl (12.0-16.0); LYMPH% 5.6 % (15-41); MEAN CORPUSCULAR HGB 28.8 pG CALC (26.0-32.0); MEAN CORPUSCULAR HGB CONC 29.7 g/dL CAL (32.0-36.0); MONO% 8.6 % (2-13); NEUT# 10.29 thou/uL (2.00-7.15); NEUT% 80.3 % (42-76); RED BLOOD COUNT 2.67 mill/uL (4.20-5.60); RED CELL DISTRI WIDTH 13.5 % (11.5-15.5)
[2023-02-08 09:12] LABS: ALBUMIN 2.4 g/dL (3.2-5.0); ALKALINE PHOSPHATASE 118 u/l (38-126); ANION GAP 12 (6-22 (CALC)); BILIRUBIN, TOTAL 0.5 mg/dL (0.02-1.3); BUN 14 mg/dL (8-23); BUN/CREATININE RATIO 16 (12-20 (CALC)); CARBON DIOXIDE 16 mmol/l (22-30); CHLORIDE 110 mmol/l (95-108); CREATININE 0.9 mg/dL (0.5-1.0); GFR FOR AFR.AMER. > 60 ML/MIN (>=60 (CALC)); GFR OTHER RACES > 60 ML/MIN (>=60 (CALC)); MAGNESIUM 1.6 mg/dL (1.6-2.3); POTASSIUM 4.6 mmol/l (3.5-5.1); SGOT/AST 25 u/l (9-36); SODIUM 134 mmol/l (137-146); TOTAL PROTEIN 5.6 g/dL (6.3-8.2)
[2023-02-08 15:58] VITALS: BP 156/64
[2023-02-08 19:04] VITALS: BP 159/64
[2023-02-09] VITALS (14 sets, daily range): BP systolic 118–162; BP diastolic 51–71
[2023-02-09 05:51] LABS: BASO% 0.3 % (0-3); EOS% 1.1 % (0-8); HEMATOCRIT 24.5 % (37.0-47.0); HEMOGLOBIN 7.1 g/dl (12.0-16.0); IMMATURE GRANULOCYTES 5.8 % (0.0-5.0); LYMPH% 12.5 % (15-41); MEAN CELL VOLUME 97.6 fL CALC (80.0-100.0); MEAN CORPUSCULAR HGB 28.3 pG CALC (26.0-32.0); MONO% 9.5 % (2-13); NEUT# 6.57 thou/uL (2.00-7.15); NEUT% 70.8 % (42-76); RED BLOOD COUNT 2.51 mill/uL (4.20-5.60); RED CELL DISTRI WIDTH 13.8 % (11.5-15.5)
[2023-02-09 06:12] LABS: ALBUMIN 2.1 g/dL (3.2-5.0); ALKALINE PHOSPHATASE 106 u/l (38-126); ANION GAP 10 (6-22 (CALC)); BILIRUBIN, TOTAL 0.3 mg/dL (0.02-1.3); BUN 14 mg/dL (8-23); BUN/CREATININE RATIO 15 (12-20 (CALC)); CARBON DIOXIDE 18 mmol/l (22-30); CHLORIDE 110 mmol/l (95-108); GFR FOR AFR.AMER. > 60 ML/MIN (>=60 (CALC)); GFR OTHER RACES 55 ML/MIN (>=60 (CALC)); MAGNESIUM 1.7 mg/dL (1.6-2.3); POTASSIUM 4.6 mmol/l (3.5-5.1); SGOT/AST 21 u/l (9-36); SODIUM 133 mmol/l (137-146)
[2023-02-10] VITALS (7 sets, daily range): BP systolic 151–184; BP diastolic 60–77
[2023-02-10 05:45] LABS: HEMATOCRIT 26.2 % (37.0-47.0); HEMOGLOBIN 8.1 g/dl (12.0-16.0); MEAN CELL VOLUME 94.2 fL CALC (80.0-100.0); MEAN CORPUSCULAR HGB 29.1 pG CALC (26.0-32.0); MEAN CORPUSCULAR HGB CONC 30.9 g/dL CAL (32.0-36.0); RED BLOOD COUNT 2.78 mill/uL (4.20-5.60); RED CELL DISTRI WIDTH 13.6 % (11.5-15.5)
[2023-02-10 06:00] LABS: ANION GAP 10 (6-22 (CALC)); BUN 14 mg/dL (8-23); BUN/CREATININE RATIO 14 (12-20 (CALC)); CARBON DIOXIDE 19 mmol/l (22-30); CHLORIDE 109 mmol/l (95-108); GFR FOR AFR.AMER. > 60 ML/MIN (>=60 (CALC)); GFR OTHER RACES 55 ML/MIN (>=60 (CALC)); POTASSIUM 4.8 mmol/l (3.5-5.1); SODIUM 134 mmol/l (137-146)
[2023-02-11 03:54] VITALS: BP 181/70
[2023-02-11 05:58] LABS: HEMATOCRIT 24.4 % (37.0-47.0); HEMOGLOBIN 7.7 g/dl (12.0-16.0); MEAN CELL VOLUME 94.6 fL CALC (80.0-100.0); MEAN CORPUSCULAR HGB 29.8 pG CALC (26.0-32.0); MEAN CORPUSCULAR HGB CONC 31.6 g/dL CAL (32.0-36.0); RED BLOOD COUNT 2.58 mill/uL (4.20-5.60); RED CELL DISTRI WIDTH 13.7 % (11.5-15.5)
[2023-02-11 06:21] LABS: ANION GAP 10 (6-22 (CALC)); BUN 13 mg/dL (8-23); BUN/CREATININE RATIO 14 (12-20 (CALC)); CARBON DIOXIDE 20 mmol/l (22-30); CHLORIDE 108 mmol/l (95-108); GFR FOR AFR.AMER. > 60 ML/MIN (>=60 (CALC)); GFR OTHER RACES 55 ML/MIN (>=60 (CALC)); POTASSIUM 4.9 mmol/l (3.5-5.1); SODIUM 132 mmol/l (137-146)
[2023-02-11 07:06] VITALS: BP 181/69
[2023-02-11 10:47] VITALS: BP 178/69
[2023-02-11] MEDS ORDERED: CIPROFLOXACN500 MG PO (13:19)
[2023-02-11] MEDS ORDERED: AMLODIPINE BESYL5 MG PO (13:21)
[2023-02-11 15:15] VITALS: BP 163/61
== END 2023-02-11 17:32 | DRG 854 ==
LOC: ED 15:54 → ICU 18:24 → MS2 20:30 → ICU 20:30 → MS2 02-01 16:06
PROVIDERS: Family Medicine; Student in an Organized Health Care Education/Training Program; ADMIT Internal Medicine; ATTEND Internal Medicine
PROC: 0J9Q0ZZ Drainage of Right Foot Subcutaneous Tissue and Fascia, Open Approach (ICD-10-PCS; principal; 2023-02-01)
PROC: 0JBQ0ZZ Excision of Right Foot Subcutaneous Tissue and Fascia, Open Approach (ICD-10-PCS; 2023-02-01)
PROC: 0JCQ0ZZ Extirpation of Matter from Right Foot Subcutaneous Tissue and Fascia, Open Approach (ICD-10-PCS; 2023-02-01)
PROC: 0J9Q0ZZ Drainage of Right Foot Subcutaneous Tissue and Fascia, Open Approach (ICD-10-PCS; 2023-02-03)
PROC: 0HXMXZZ Transfer Right Foot Skin, External Approach (ICD-10-PCS; 2023-02-07)
PROC: 0L8N3ZZ Division of Right Lower Leg Tendon, Percutaneous Approach (ICD-10-PCS; 2023-02-07)
PROC: 0Y6M0Z9 Detachment at Right Foot, Partial 1st Ray, Open Approach (ICD-10-PCS; 2023-02-07)
PROC: 0Y6M0ZB Detachment at Right Foot, Partial 2nd Ray, Open Approach (ICD-10-PCS; 2023-02-07)
PROC: 0Y6M0ZC Detachment at Right Foot, Partial 3rd Ray, Open Approach (ICD-10-PCS; 2023-02-07)
PROC: 0Y6M0ZD Detachment at Right Foot, Partial 4th Ray, Open Approach (ICD-10-PCS; 2023-02-07)
PROC: 0Y6M0ZF Detachment at Right Foot, Partial 5th Ray, Open Approach (ICD-10-PCS; 2023-02-07)
PROC: 30233N1 Transfusion of Nonautologous Red Blood Cells into Peripheral Vein, Percutaneous Approach (ICD-10-PCS; 2023-02-09)
DX: A41.9 Sepsis, unspecified organism (principal); E11.52 Type 2 diabetes mellitus with diabetic peripheral angiopathy with gangrene; E87.1 Hypo-osmolality and hyponatremia; N17.9 Acute kidney failure, unspecified; L03.115 Cellulitis of right lower limb; L02.611 Cutaneous abscess of right foot; I96 Gangrene, not elsewhere classified; M86.8X7 Other osteomyelitis, ankle and foot; R65.20 Severe sepsis without septic shock; S91.341A Puncture wound with foreign body, right foot, initial encounter; E11.22 Type 2 diabetes mellitus with diabetic chronic kidney disease; I12.9 Hypertensive chronic kidney disease with stage 1 through stage 4 chronic kidney disease, or unspecified chronic kidney disease; N18.9 Chronic kidney disease, unspecified; E11.42 Type 2 diabetes mellitus with diabetic polyneuropathy; J44.9 Chronic obstructive pulmonary disease, unspecified; I25.10 Atherosclerotic heart disease of native coronary artery without angina pectoris; M06.9 Rheumatoid arthritis, unspecified; B96.1 Klebsiella pneumoniae [K. pneumoniae] as the cause of diseases classified elsewhere; E83.42 Hypomagnesemia; E11.69 Type 2 diabetes mellitus with other specified complication; D64.9 Anemia, unspecified; E66.9 Obesity, unspecified; X58.XXXA Exposure to other specified factors, initial encounter; Z68.27 Body mass index [BMI] 27.0-27.9, adult; Z79.84 Long term (current) use of oral hypoglycemic drugs; Z95.1 Presence of aortocoronary bypass graft; Z95.5 Presence of coronary angioplasty implant and graft; Z20.822 Contact with and (suspected) exposure to COVID-19
CPT/HCPCS: J0131; J0692; J3370; J3475; P9016